=== PATIENT | male | born 1945 | race Caucasian/White ===

== ENCOUNTER 2019-05-07 14:32 | Outpatient (CLI) | payer MEDICARE, SELFPAY ==
--- NOTE | ~2019-05-07 | US_ITS ---
EXAMINATION: US carotid duplex BI DATE: 05/07/2019 15:17 INDICATION: Carotid stenosis. TECHNIQUE: Grayscale, color Doppler, and pulsed Doppler images of the cervical carotid arteries were obtained. The degree of vessel stenosis is placed in one of the following categories: normal, <50%, 5 0-69%, >=70% but less than near-occlusion, near-occlusion, or total occlusion. Note that percent sten osis relative to normal distal artery lumen diameter is indirectly measured from velocity measurement s as described by Steve, et al. Radiology 2003; 229:340-346. COMPARISON: Ultrasound 10/21/2015 FINDINGS: RIGHT: The right common carotid artery (CCA) peak systolic velocity (PSV) is 91 cm/s. The right internal car otid artery (ICA) PSV is 153 cm/s. The right ICA end-diastolic velocity (EDV) is 44 cm/s. The right I CA/CCA PSV ratio is 1.7. Grayscale and color Doppler images yield an estimate of >=50% diameter reduc tion from plaque in the ICA. There is antegrade flow in the right vertebral artery. LEFT: The left CCA PSV is 123 cm/s. The left ICA PSV is 223 cm/s. The left ICA EDV is 51 cm/s. The left ICA /CCA PSV ratio is 1.7. Grayscale and color Doppler images yield an estimate of >=50% diameter reducti on from plaque in the ICA. There is antegrade flow in the left vertebral artery. IMPRESSION: 1. 50-69% stenosis in the right internal carotid artery. 2. 50-69% stenosis in the left internal carotid artery. Reviewed, dictated and finalized at location A. T METAL SHOP SUPERVISOR
== END 2019-05-07 14:33 | disposition home or self-care (01) ==
PROVIDERS: PCP Family Medicine; Visit Provider Physician Assistant Medical
DX: I65.23 Occlusion and stenosis of bilateral carotid arteries (principal)
CPT/HCPCS: 93880

== ENCOUNTER → 2022-05-16 09:06 | Outpatient (CLI) | payer MEDICARE, SELFPAY ==
--- NOTE | ~2022-05-16 | US_ITS ---
Ultrasound of the Abdominal Aorta INDICATION: Personal history of nicotine abuse. Evaluate for aortic aneurysm. TECHNIQUE: Grayscale, color Doppler, and pulsed Doppler images of the aorta and common iliac arteries were obtained. COMPARISON: None. FINDINGS: Maximum vascular dimensions are as follows: Proximal aorta: Obscured by bowel gas shadowing. Mid aorta: 2.1 cm Distal aorta: 2.3 cm Right common iliac artery: 1.2 cm Left common iliac artery: 1.0 cm There is no evidence of abdominal aortic aneurysm. There is atherosclerotic calcification extensively involving the visualized abdominal aorta. IMPRESSION: No abdominal aortic aneurysm seen. Proximal abdominal aorta is obscured by bowel gas shadowing. Probable atherosclerotic calcification of the visualized abdominal aorta. Reviewed, dictated and finalized at location M. ANICAL DESIGNER IMPRESSION: No abdominal aortic aneurysm seen. Proximal abdominal aorta is obscured by kanchan l gas shadowing. Probable atherosclerotic calcification of the visualized abdominal aorta.
--- NOTE | ~2022-05-16 | US_ITS ---
Procedure: Duplex Doppler examination of the bilateral carotids. Indication: Carotid occlusion Technique: Real time, color-flow and pulse wave Doppler examination of the bilateral carotids was performed. Findings: Arreola scale ultrasonography of the right neck demonstrated a large calcified plaque at the proximal ri ght internal carotid artery. There was demonstration of normal color-flow and Doppler waveforms withi n the right common, internal and external carotid arteries. The peak systolic velocities in the right common, internal and external carotid arteries were demonstrated to be 110 cm/sec, 194 cm/sec and 19 2 cm/sec respectively. The right ICA/CCA ratio was 1.8.The proximal right internal carotid artery dem onstrates approximately 95% stenosis relative to the normal distal artery lumen diameter. Arreola scale sonography of the left neck demonstrated large calcified plaque at the proximal left inter nal carotid artery. There was demonstration of normal color-flow and wave forms within the left commo n, internal and external carotid arteries. The peak systolic velocities in the left common, internal and external carotid arteries were demonstrated to be 145cm/sec, 292 cm/sec and 179 cm/sec respective ly. The left ICA/CCA ratio was 2.7. The proximal left internal carotid artery demonstrates approximat ana luisa 95% stenosis relative to the normal distal artery lumen diameter. There was antegrade flow demonstrated in the bilateral vertebral arteries. Impression: Probable high-grade stenoses at the bilateral proximal internal carotid arteries, as detailed above. Consider CT angiogram for further imaging evaluation as indicated. Note: The methodology used is an indirect measurement validated against a direct method (such as the NASCET criteria) that compares diameters at the stenosis to the distal ICA. Reviewed, dictated and finalized at location M. ITY FLOW IRRIGATOR Impression: Probable high-grade stenoses at the bilateral proximal internal carotid arterie s, as detailed above. Consider CT angiogram for further imaging evaluation as i ndicated. Note: The methodology used is an indirect measurement validated against a direct meth od (such as the NASCET criteria) that compares diameters at the stenosis to the distal ICA.
== END ==
PROVIDERS: PCP Family Medicine; Visit Provider Physician Assistant
DX: I65.23 Occlusion and stenosis of bilateral carotid arteries (principal); Z87.891 Personal history of nicotine dependence; Z13.6 Encounter for screening for cardiovascular disorders
CPT/HCPCS: 76706; 93880

== ENCOUNTER 2023-05-05 16:07 | Observation (INO) | payer MEDICARE, SELFPAY ==
[2023-05-05] VITALS (12 sets, daily range): BP systolic 149–186; BP diastolic 68–102; PULSE 90–92; RESP 18–20; TEMP 36.7; O2SAT 96–100
--- NOTE | ~2023-05-05 | CT_ITS ---
EXAMINATION: CT abdomen pelvis w con DATE: 05/05/2023 21:52 INDICATION: RLQ pain TECHNIQUE: Computed tomography (CT) of the abdomen and pelvis was performed with 100 mL Omnipaque-350 intravenous contrast. Automated exposure control and iterative reconstruction technique were employe d. The dose-length product was 825.11 mGy-cm. COMPARISON: None. FINDINGS: Lower thorax: Dependent atelectasis. Coronary artery calcifications. Mediastinal surgical clips. Liver: Normal. Biliary/Gallbladder: Cholelithiasis. No bile duct dilation. Pancreas: Pancreatic lipoma/fatty inclusion. kidneys bilateral perinephric stranding. Duplicati on of the bilateral collecting systems. No hydronephrosis or suspicious mass. No obstructing calcific ation Spleen: Normal. Adrenals:No mass. Kidneys: No suspicious mass, obstructing stone, or hydronephrosis. GI tract: No small or large bowel dilation. Dilated appendix with surrounding inflammatory change. Ir regular 1.9 cm fluid collection at the tip of the appendix. No free air Mesentery/Peritoneum: No ascites, mass, or free air. Retroperitoneum: No mass. Atherosclerotic abdominal aortic and/or arterial calcifications. Pelvis: Moderately distended urinary bladder with mild wall thickening. Mild prostatomegaly. Soft Tissues: Soft tissues and body wall unremarkable. Bones: No acute osseous finding. IMPRESSION: Acute appendicitis, complicated by the presence of a 1.9 cm periappendiceal abscess at the tip of the appendix. No free air. Cystitis versus bladder wall thickening from chronic outlet obstruction. Reviewed, dictated and finalized at location K. RMATION SYSTEMS SECURITY MANAGER IMPRESSION: Acute appendicitis, complicated by the presence of a 1.9 cm periappendiceal abs cess at the tip of the appendix. No free air. Cystitis versus bladder wall thickening from chronic outlet obstruction.
[2023-05-05 21:08] LABS: Basophils Percent Auto 0.1 % (0.2-1.2); Eosinophils Absolute Auto 0.1 K/mm3 (0-0.3); Eosinophils Percent Auto 0.6 % (0-4.4); Hematocrit 44.3 % (42.0-52.0); Hemoglobin 14.6 g/dL (14.0-18.0); Immature Granulocyte Absolute 0.07 K/mm3 (0.00-0.031); Immature Granulocyte Percent A 0.4 % (0-0.5); Lymphocytes Absolute Auto 3.88 K/mm3 (0.9-3.2); Lymphocytes Percent Auto 21.6 % (18.3-44.2); Mean Corpuscular Hemoglobin 31.4 pg (26-34); Mean Corpuscular Volume 95.3 fl (80-100); Mean Platelet Volume 11.3 fl (7.4-10.4); Monocytes Absolute Auto 2.7 K/mm3 (0.1-0.6); Monocytes Percent Auto 15.1 % (2.6-8.5); Neutrophils Absolute Auto 11.2 K/mm3 (1.3-6.7); Neutrophils Percent Auto 62.2 % (45.5-73.1); Platelet Count Result 255 k/mm3 (150-375); Red Blood Count 4.65 M/mm3 (4.6-6.20); Red Cell Distribution Width 12.1 % (11.5-14.5)
[2023-05-05 21:11] LABS: Appearance Urine Clear (Clear); Bilirubin Urine Negative (Negative); Blood Urine Negative (Negative); Color Urine Yellow (Yellow); Glucose Urine UA Negative (Negative); Ketones Urine Negative (Negative); Leukocyte Esterase Ur Negative LEU/UL (Negative); Nitrate Urine Negative (Negative); Protein Urine Negative (Negative); Specific Grav Ur 1.003 (1.001-1.035); Urobilinogen Urine 0.2 mg/dL (<2.0); pH Urine 6.5 (5.0-9.0)
[2023-05-05 21:17] LABS: Alanine Aminotransferase 32 U/L (6-50); Albumin Level 4.6 g/dL (3.5-5.1); Alkaline Phosphatase 81 U/L (38-126); Anion Gap 9 mmol/L (8-16); Aspartate Amino Transferase 33 U/L (17-59); Bilirubin,Total 0.9 mg/dL (0.2-1.3); Blood Urea Nitrogen 15 mg/dL (9-20); Calcium 9.3 mg/dL (8.4-10.2); Carbon Dioxide 29 mmol/L (22-30); Chloride 101 mmol/L (98-107); Estimated CRCL calculation 74 ml/min; Estimated Glomerular Filt Rate > 60; Glucose 106 mg/dL (65-110); Sodium 139 mmol/L (137-145)
[2023-05-05 21:20] LABS: Add Urine Microscopic? NO
--- NOTE | 2023-05-05 21:47 | PC.NURSE ---
Patient in CT at this time.
--- NOTE | 2023-05-05 21:53 | ED.GENADULT ---
HPI - General Adult General Chief complaint: Abdominal Pain Stated complaint: RIGHT FLANK PAIN Time Seen by Provider: 05/05/23 21:32 Source: patient Mode of arrival: ambulatory Limitations: no limitations History of Present Illness HPI narrative: this is a 77 year old male with PMH of HLD, CAD, CABG who presents to the ED for chief complaint of right lower quadrant abdominal pain beginning last night and worsening through today. Reports some nausea that has since resolved. Denies any problems with bowel movements. Denies urinary symptoms. Denies any abdominal surgical history. Denies flank pain, fevers, chills, chest pain, shortness of breath or cough. Related Data Home Medications Medication Instructions Recorded Confirmed aspirin 81 mg tablet,delayed 81 mg PO DAILY 02/06/19 05/12/22 release (Ghada Low Dose Aspirin) multivitamin 1 cap PO DAILY 02/06/19 05/12/22 omega-3 fatty acids 1,000 mg 1,000 mg PO BID 05/05/19 05/12/22 capsule (Fish Oil Concentrate) Allergies Allergy/AdvReac Type Severity Reaction Status Date / Time No Known Allergies Allergy Verified 05/05/23 21:39 Review of Systems Review of Systems: All systems as dictated in [facility] Past Medical History Medical History Hyperlipidemia Hypertension Myocardial infarction (~11/07/01) Obesity (BMI 30.0-34.9) Wears glasses Surgical History Surgical History History of coronary angioplasty with insertion of stent (~11/07/01) Family History Family History Mother Cerebrovascular accident Father Family history of kidney disease Social History Social History Smoking status: Former smoker Second hand tobacco smoke exposure: No Smoking end date: 04/09/72 Alcohol intake: current Drinks per week: 1 Substance use: never Substance use type: does not use Lack of Transportation: No Lack of Food: Never True Current Housing: I Have Housing Concerned About Future Housing: No Difficulty Paying Gas/Electric Bills: No Difficulty Paying for Meds: No Currently Unemployed: No Education: Trade/Vocational Certificate Difficulty w/ Childcare or Family Care: No Living arrangements: with family Occupation/Education: retired Gender identity (if verbalized by the patient): Male Spiritual care concerns: No Agree to blood products: Yes Exam Narrative: GENERAL: Well-appearing, well-nourished, and in no acute distress. HEAD: Normocephalic, atraumatic. EYES: PERRLA and EOMI. ENT: Nares clear, no rhinorrhea or epistaxis. Mucous membranes moist. Oropharynx without tonsillar hypertrophy exudate or other lesions. NECK: Supple. No adenopathy or masses. CHEST: No respiratory distress. Clear to auscultation. No wheezes rales or rhonchi HEART: Regular rate and rhythm. No murmur heard. Normal peripheral pulses. ABDOMEN: Focal tenderness to the right lower quadrant. Soft, otherwise nontender, nondistended, normal active bowel sounds. MSK: Normal range of motion. No edema. SKIN: Warm, dry, no rash. NEURO: Alert and oriented x3. No focal deficits. PSYCH: Normal mood and affect. Course Vital Signs Vital signs: Vital Signs Temperature 98.0 F 05/05/23 16:10 Pulse Rate 92 05/05/23 16:10 Respiratory Rate 18 05/05/23 16:10 Blood Pressure 177/68 H 05/05/23 16:10 Pulse Oximetry 100 05/05/23 16:10 Temperature 98.0 F 05/05/23 16:10 Pulse Rate 83 05/06/23 00:30 Respiratory Rate 19 05/06/23 00:30 Blood Pressure 153/80 H 05/06/23 00:17 Pulse Oximetry 98 05/06/23 00:30 Medical Decision Making MDM Narrative Medical decision making narrative: This is a 77-year-old male who presents to the ED with chief complaint of right lower quadrant pain beginning last nigh
[2023-05-05] MEDS: MORPHINE SULFATE (*CRX) 4 MG/ML INJ IV PUSH (22:00)
[2023-05-05] MEDS: PIPERACILLN/TAZ 3.375GM/NS50ML 3.375 GM/50 ML BAG IVPB (22:46)
--- NOTE | 2023-05-05 22:55 | PM.IMHP ---
H&P: HPI History of Present Illness Date/Time: 05/05/23 22:55 Chief Complaint: Abdominal pain Narrative: Patient was brought to the ED for evaluation of abdominal pain on the right lower abdomen, symptoms that last night, minimal, was with ambulation, trev was 8/10 when patient was at the hospital Triage, no nausea no vomiting no diarrhea, no chills. He was evaluated in the ED and found to have a leukocytosis of 18 kg, CT scan of abdomen and pelvis showed acute appendicitis with periappendiceal abscess. Patient was provided with pain control, IV fluid and antibiotic. General surgery has been consulted and patient has been placed on surgical release tomorrow. During my consultation he denied any pain currently Review of Systems Review of Systems: All systems reviewed & are unremarkable except as noted in HPI and below PMFSH Past Medical History Medical History Hyperlipidemia Hypertension Myocardial infarction (~11/07/01) Obesity (BMI 30.0-34.9) Wears glasses Surgical History Surgical History History of coronary angioplasty with insertion of stent (~11/07/01) Family History Family History Mother Cerebrovascular accident Father Family history of kidney disease Social History Social History Smoking status: Former smoker Second hand tobacco smoke exposure: No Smoking end date: 04/09/72 Alcohol intake: current Drinks per week: 1 Substance use: never Substance use type: does not use Lack of Transportation: No Lack of Food: Never True Current Housing: I Have Housing Concerned About Future Housing: No Difficulty Paying Gas/Electric Bills: No Difficulty Paying for Meds: No Currently Unemployed: No Education: Trade/Vocational Certificate Difficulty w/ Childcare or Family Care: No Living arrangements: with family Occupation/Education: retired Gender identity (if verbalized by the patient): Male Spiritual care concerns: No Agree to blood products: Yes Meds Home Medications and Allergies Home Medications Medication Instructions Recorded Confirmed Type aspirin 81 mg tablet,delayed 81 mg PO DAILY 02/06/19 05/12/22 History release (Ghada Low Dose Aspirin) multivitamin 1 cap PO DAILY 02/06/19 05/12/22 History omega-3 fatty acids 1,000 mg 1,000 mg PO BID 05/05/19 05/12/22 History capsule (Fish Oil Concentrate) lisinopril 10 mg tablet 10 mg PO DAILY #90 tabs 08/29/22 Rx tamsulosin 0.4 mg capsule (Flomax) 0.4 mg PO DAILY #90 caps 11/24/22 Rx metoprolol tartrate 50 mg tablet 50 mg PO BID #180 tabs 11/30/22 Rx atorvastatin 40 mg tablet 40 mg PO DAILY #90 tabs 02/19/23 Rx Allergies Allergy/AdvReac Type Severity Reaction Status Date / Time No Known Allergies Allergy Verified 05/05/23 21:39 Vital Signs Vital Signs - 24 hr 05/05/23 16:10 05/05/23 20:58 Temperature 98.0 F Pulse Rate 92 90 Respiratory Rate 18 18 Blood Pressure 177/68 H 186/102 H Pulse Oximetry 100 100 Exam Narrative: General: Alert and oriented x4, not in distress HEENT: Normocephalic atraumatic EOMI Respiratory: Clear to auscultation bilaterally Cardiovascular: Regular rate and rhythm normal Gastrointestinal: Soft obese, right lower quadrant tenderness, bowel sounds are sounds Musculoskeletal/skin: Range of motion intact in all extremity, sensation circulation intact Neurologic: Priest and oriented x4, no focal neurological deficit H&P: Results Labs Labs: Short CBC 05/05/23 Range/Units 20:58 WBC 18.0 H (4.5-10.0) K/mm3 Hgb 14.6 (14.0-18.0) g/dL Hct 44.3 (42.0-52.0) % Plt Count 255 (150-375) k/mm3 [facility] 05/05/23 20:58 Sodium 139 Potassium 4.0 Chloride 101 Carbon Dioxide 29 BUN 15 Creatinine 0.90 Glucose 106 Calci
[2023-05-05 23:03] LABS: Lactic Acid Reflex 1.1 mmol/L (0.7-2.0)
[2023-05-06] VITALS (10 sets, daily range): BP systolic 145–164; BP diastolic 62–85; PULSE 66–99; RESP 16–19; TEMP 35.9–37.6; O2SAT 94–98; BMI 31.6
[2023-05-06] MEDS: SODIUM CHLORIDE 0.9% IV 1,000 ML 125 ML IV CONT ×3 (00:58→18:44)
--- NOTE | 2023-05-06 01:06 | ADMGEN ---
This patient, Angelina Moreno, was admitted to 3 [facility] Surg Room 316-01 at 1255. Patient/family oriented to hospital policies and general routines including ID bracelet, bed and alarms, visiting hours, pain management, procedures, bathroom and other care routines, personal items, smoking policy, room service/diet, and visiting hours. Information on how to activate the Rapid Response Team has been discussed. Patient/Family are encouraged to report perceived risks to care and to ask questions if they do not understand what they are told or what they should do.
[2023-05-06] MEDS: HYDROmorphone HCL INJ (*CRX) 1 MG/ML SYR 0.5 MG IV PUSH (03:29)
[2023-05-06] MEDS: PIPERACILLN/TAZ 3.375GM/NS50ML 3.375 GM/50 ML BAG IVPB ×4 (05:38→23:41)
[2023-05-06] MEDS: KETOROLAC 15 MG/ML VIAL (*BKC) IV PUSH (06:30)
[2023-05-06 07:22] LABS: Basophils Percent Auto 0.2 % (0.2-1.2); Eosinophils Absolute Auto 0.1 K/mm3 (0-0.3); Eosinophils Percent Auto 0.5 % (0-4.4); Hematocrit 40.7 % (42.0-52.0); Hemoglobin 13.5 g/dL (14.0-18.0); Immature Granulocyte Absolute 0.04 K/mm3 (0.00-0.031); Immature Granulocyte Percent A 0.3 % (0-0.5); Lymphocytes Absolute Auto 2.29 K/mm3 (0.9-3.2); Lymphocytes Percent Auto 18.1 % (18.3-44.2); Mean Corpuscular HGB Conc 33.2 g/dl (32-36); Mean Corpuscular Hemoglobin 31.7 pg (26-34); Mean Corpuscular Volume 95.5 fl (80-100); Mean Platelet Volume 11.1 fl (7.4-10.4); Monocytes Percent Auto 15.7 % (2.6-8.5); Neutrophils Absolute Auto 8.3 K/mm3 (1.3-6.7); Neutrophils Percent Auto 65.2 % (45.5-73.1); Platelet Count Result 205 k/mm3 (150-375); Red Blood Count 4.26 M/mm3 (4.6-6.20); Red Cell Distribution Width 12.2 % (11.5-14.5); White Blood Count 12.7 K/mm3 (4.5-10.0)
[2023-05-06 07:35] LABS: Anion Gap 7 mmol/L (8-16); Blood Urea Nitrogen 12 mg/dL (9-20); Calcium 8.7 mg/dL (8.4-10.2); Carbon Dioxide 29 mmol/L (22-30); Chloride 103 mmol/L (98-107); Estimated CRCL calculation 74 ml/min; Estimated Glomerular Filt Rate > 60; Glucose 123 mg/dL (65-110); Potassium 3.8 mmol/L (3.4-5.0); Sodium 139 mmol/L (137-145)
--- NOTE | 2023-05-06 10:56 | PM.CNGS ---
Assessment and Plan Assessment and plan (1) Acute appendicitis with appendiceal abscess: Code(s): K35.33 - Acute appendicitis with perforation, localized peritonitis, and gangrene, with abscess Status: Acute Assessment and Plan: exam completely benign, leukocytosis improved, long discussion with patient and family regarding surgical intervention versus conservative management with IV antibiotics, given comorbidities including coronary artery disease decision to proceed with continued conservative management for now, we will start clear liquids and make NPO again after midnight (2) Arteriosclerotic cardiovascular disease: Code(s): I25.10 - Atherosclerotic heart disease of [place] coronary artery without angina pectoris Status: Acute Assessment and Plan: status post CABG, if surgical intervention is required will likely need cardiac optimization History of Present Illness Consult details Consult date: 05/06/23 Reason for consult: abdominal pain Requesting physician: Zuleika Floyd MD Narrative: The patient is a 77-year-old male with multiple medical issues presenting to the emergency department complaining severe right lower quadrant abdominal pain. The patient reports the pain had been present for the last day or so and was worsening in intensity. The patient reports the pain is localized to the right lower quadrant and is sharp, constant. The patient reports the pain was worse with movement. The patient reports associated nausea, anorexia but denies any fevers, chills, emesis. Workup in the emergency department, including imaging, was significant for acute perforated appendicitis with periappendiceal abscess. Review of Systems Review of Systems: All systems reviewed & are unremarkable except as noted in HPI and below PMFSH Past Medical History Medical History Hyperlipidemia Hypertension Myocardial infarction (~11/07/01) Obesity (BMI 30.0-34.9) Wears glasses Surgical History Surgical History History of coronary angioplasty with insertion of stent (~11/07/01) Family History Family History Mother Cerebrovascular accident Father Family history of kidney disease Social History Social History Smoking status: Former smoker Tobacco type: cigarettes Second hand tobacco smoke exposure: No Alcohol intake: current Drinks per week: 1 Substance use: never Substance use type: does not use Do You Feel Safe in your Home?: Yes Lack of Transportation: No Lack of Food: Never True Current Housing: I Have Housing Concerned About Future Housing: No Difficulty Paying Gas/Electric Bills: No Difficulty Paying for Meds: No Currently Unemployed: No Education: Trade/Vocational Certificate Difficulty w/ Childcare or Family Care: No Living arrangements: with family Occupation/Education: retired Gender identity (if verbalized by the patient): Male Spiritual care concerns: No Agree to blood products: Yes Meds Home Medications and Allergies Home Medications Medication Instructions Recorded Confirmed Type aspirin 81 mg tablet,delayed 81 mg PO DAILY 02/06/19 05/06/23 History release (Ghada Low Dose Aspirin) multivitamin 1 cap PO DAILY 02/06/19 05/06/23 History omega-3 fatty acids 1,000 mg 1,000 mg PO BID 05/05/19 05/06/23 History capsule (Fish Oil Concentrate) lisinopril 10 mg tablet 10 mg PO DAILY #90 tabs 08/29/22 05/06/23 Rx tamsulosin 0.4 mg capsule (Flomax) 0.4 mg PO DAILY #90 caps 11/24/22 05/06/23 Rx metoprolol tartrate 50 mg tablet 50 mg PO BID #180 tabs 11/30/22 05/06/23 Rx atorvastatin 40 mg tablet 40 mg PO DAILY #90 tabs 02/19/23 05/06/23 Rx Allergies Allergy/AdvReac Type Severity Reaction Status Date / Time No Known All
--- NOTE | 2023-05-06 14:39 | PM.IMPN ---
Progress Note: A&P Assessment and Plan (1) Acute appendicitis with appendiceal abscess: Code(s): K35.33 - Acute appendicitis with perforation, localized peritonitis, and gangrene, with abscess Status: Acute Assessment and Plan: CT of the abdomen pelvis revealed acute appendicitis, complicated by the presence of a 1.9 cm periappendiceal abscess at the tip of the appendix, no free air. Patient was started on Zosyn Continue with pain medication as needed Continue with nausea medication as needed General surgery consulted and seen patient, we will continue with conservative treatment for now and reassess in the morning. Start clear liquid diet, NPO after midnight (2) Essential (primary) hypertension: Code(s): I10 - Essential (primary) hypertension Status: Chronic Assessment and Plan: Restart lisinopril and metoprolol (3) Hyperlipidemia: Code(s): E78.5 - Hyperlipidemia, unspecified Status: Acute Assessment and Plan: Restart atorvastatin Time Spent With Patient Time with patient: Greater than 35 minutes Subjective Date/time seen: 05/06/23 14:39 Interval history: This is a 77-year-old male who presented to the hospital on 05/05/2019 complaints pain right lower quadrant. Workup in the hospital included a CT scan which acute which is complicated by the presence of 1.9 cm. Appendiceal abscess at the tip of the appendix, no free air, cystitis versus bladder thickening from chronic outlet obstruction. Labs initially showing white blood cell count 18.0, otherwise unremarkable. He did have a UA which was unremarkable. Blood cultures were also obtained and are currently pending. He was given morphine, Toradol, and started on Zosyn while in the ED. On examination today patient is alert oriented x3 sitting in the. is at the bedside. He reports that he a headache slight pain right lower quadrant however it is much better than yesterday. He denies any nausea, vomiting, diarrhea, shortness of breath, chest pain, lightheadedness, dizziness, fever, chills. Vital signs are stable, is afebrile he is currently room air. Labs today revealed white blood cell count of 12.7 otherwise unremarkable. Review of Systems Review of Systems: All systems reviewed & are unremarkable except as noted in HPI and below Constitutional: Constitutional: Reports as per HPI and Reports no additional constitutional complaints Eyes: Eyes: Reports as per HPI and Reports no additional eye complaints ENT: Reports system reviewed and no additional complaints, except as documented and Reports as per HPI Cardiovascular: Cardiovascular: Reports as per HPI and Reports no additional cardiovascular complaints Respiratory: Respiratory: Reports as per HPI and Reports no additional respiratory complaints Gastrointestinal: Gastrointestinal: Reports as per HPI and Reports no additional gastrointestinal complaints Genitourinary: Genitourinary: Reports no additional male genitourinary complaints and Reports as per HPI Musculoskeletal: Musculoskeletal: Reports no additional musculoskeletal complaints and Reports as per HPI Integumentary/Breasts: Skin/Breast: Reports system reviewed and no additional complaints, except as docu and Reports as per HPI Neurologic: Reports system reviewed and no additional complaints, except as documented and Reports as per HPI Psychiatric: Psychiatric: Reports no additional psychiatric complaints and Reports as per HPI Exam Narrative: General: In no acute distress, well nourished Head: atraumatic, no encephalopathy Eyes: EOMI, PERRLA, sclera clear ENT: moist mucous membranes, nasal passages clear Neck: supple, no JVD, no adenopathy, trachea midline Cardiac: Normal S1 and S2. RRR. No murmur, gallops or friction rubs, peripheral pulses intact. Respiratory: Lungs clear to auscultation, no adventitious lung sounds, he is currently on room air Gastrointestinal: soft, non-distended, ten
[2023-05-06] MEDS: OMEGA 3 POLYUNSAT FATTY ACIDS 1 GM CAP PO (17:13)
[2023-05-06] MEDS: METOPROLOL TARTRATE 50 MG TAB PO (17:13)
[2023-05-07] MEDS: traZODone HCL 50 MG TABLET PO ×2 (00:31→20:53)
[2023-05-07] MEDS: SODIUM CHLORIDE 0.9% IV 1,000 ML 125 ML IV CONT ×3 (02:10→19:22)
[2023-05-07] MEDS: PIPERACILLN/TAZ 3.375GM/NS50ML 3.375 GM/50 ML BAG IVPB ×4 (05:35→23:44)
[2023-05-07 06:00] VITALS: BP 158/66; PULSE 85; RESP 20; TEMP 37.1; O2SAT 95
[2023-05-07 06:42] LABS: Basophils Percent Auto 0.2 % (0.2-1.2); Eosinophils Absolute Auto 0.1 K/mm3 (0-0.3); Eosinophils Percent Auto 0.6 % (0-4.4); Hematocrit 37.6 % (42.0-52.0); Hemoglobin 12.5 g/dL (14.0-18.0); Immature Granulocyte Absolute 0.05 K/mm3 (0.00-0.031); Immature Granulocyte Percent A 0.4 % (0-0.5); Lymphocytes Percent Auto 18.1 % (18.3-44.2); Mean Corpuscular HGB Conc 33.2 g/dl (32-36); Mean Corpuscular Hemoglobin 31.7 pg (26-34); Mean Corpuscular Volume 95.4 fl (80-100); Mean Platelet Volume 11.1 fl (7.4-10.4); Monocytes Absolute Auto 2.4 K/mm3 (0.1-0.6); Monocytes Percent Auto 17.2 % (2.6-8.5); Neutrophils Absolute Auto 8.8 K/mm3 (1.3-6.7); Neutrophils Percent Auto 63.5 % (45.5-73.1); Platelet Count Result 198 k/mm3 (150-375); Red Blood Count 3.94 M/mm3 (4.6-6.20); Red Cell Distribution Width 12.1 % (11.5-14.5); White Blood Count 13.8 K/mm3 (4.5-10.0)
[2023-05-07 06:58] LABS: Alanine Aminotransferase 20 U/L (6-50); Albumin Level 3.5 g/dL (3.5-5.1); Alkaline Phosphatase 65 U/L (38-126); Anion Gap 6 mmol/L (8-16); Aspartate Amino Transferase 32 U/L (17-59); Bilirubin,Total 1.4 mg/dL (0.2-1.3); Blood Urea Nitrogen 10 mg/dL (9-20); Calcium 8.4 mg/dL (8.4-10.2); Carbon Dioxide 28 mmol/L (22-30); Chloride 108 mmol/L (98-107); Estimated CRCL calculation 81 ml/min; Estimated Glomerular Filt Rate > 60; Glucose 118 mg/dL (65-110); Potassium 4.2 mmol/L (3.4-5.0); Sodium 142 mmol/L (137-145)
[2023-05-07] MEDS: METOPROLOL TARTRATE 50 MG TAB PO ×2 (08:27→17:02)
[2023-05-07] MEDS: TAMSULOSIN HCL 0.4 MG CAPSULE PO (08:28)
[2023-05-07] MEDS: ATORVASTATIN 40 MG TABLET PO (08:28)
[2023-05-07] MEDS: lisinopriL 10 MG TABLET PO (08:28)
[2023-05-07] MEDS: MULTIVITAMINS THERAPEUTIC TAB (*BKC) 1 TABLET PO (08:28)
[2023-05-07] MEDS: OMEGA 3 POLYUNSAT FATTY ACIDS 1 GM CAP PO ×2 (08:28→17:02)
--- NOTE | 2023-05-07 11:51 | PM.PNGS ---
Progress Note: A&P Assessment and Plan (1) Acute appendicitis with appendiceal abscess: Code(s): K35.33 - Acute appendicitis with perforation, localized peritonitis, and gangrene, with abscess Status: Acute Assessment and Plan: exam benign, advance to heart healthy diet, likely home tomorrow on po abx if doing well Subjective Subjective Date/Time Seen: 05/07/23 11:51 Interval history: feels good, some mild RLQ pain c movt, petty clears, wants to eat Review of Systems Review of Systems: All systems reviewed & are unremarkable except as noted in HPI and below Exam Const: General: cooperative, comfortable and no acute distress Resp: Auscultation: clear to auscultation bilaterally Cardio: Rate: regular rate Rhythm: regular rhythm GI: Inspection: normal to inspection and non-distended GI Palp: Yes abdominal tenderness, Yes Soft to palpation, Yes Tenderness to palpation present (GI), No Guarding due to palpation present (GI) and No Rigid due to palpation Other: minimal RLQ pain to palpation Objective Data Vital Signs Vital Signs: Vital Signs - 24 hr 05/06/23 14:00 05/06/23 17:13 05/06/23 20:00 Temperature 36.9 C Pulse Rate 87 87 Respiratory Rate 16 Blood Pressure 164/64 H Pulse Oximetry 98 Oxygen Delivery Room Air 05/06/23 22:00 05/07/23 06:00 05/07/23 08:00 Temperature 37.6 C H 37.1 C Pulse Rate 66 85 Respiratory Rate 19 20 Blood Pressure 145/62 H 158/66 H Pulse Oximetry 98 95 Oxygen Delivery Room Air Intake/Output Intake/Output: Intake & Output 05/04/23 05/05/23 05/06/23 05/07/23 23:59 23:59 23:59 23:59 Intake Total 50 3050 2500 Balance 50 3050 2500 Meds/Results Medications: Active Medications Generic Name Dose Route Start Last Admin Trade Name Freq PRN Reason Stop Dose Admin Atorvastatin Calcium 40 mg 05/07/23 09:00 05/07/23 08:28 Atorvastatin 40 Mg Tablet PO 40 mg DAILY TANG Administration Fish Oil 1 gm 05/06/23 17:00 05/07/23 08:28 [place] 3 Polyunsat Fatty Acids 1 Gm Cap PO 1 gm BID TANG Administration Hydromorphone HCl 0.5 mg 05/05/23 22:55 05/06/23 03:29 Hydromorphone Hcl Inj (*Crx) 1 Mg/Ml Syr IV PUSH 0.5 mg Q4H PRN Administration Pain Rated 7-10 Sodium Chloride 1,000 mls @ 125 mls/hr 05/05/23 22:55 05/07/23 10:30 Normal Saline Iv IV CONT 125 mls/hr .Q8H TANG Administration Piperacillin/Tazobactam/Dextrose 3.375 gm in 50 mls @ 100 mls/hr 05/06/23 06:00 05/07/23 11:28 Zosyn 3.375 Gm/Ns 50 Ml IVPB 100 mls/hr Q6HR TANG Administration Lisinopril 10 mg 05/07/23 09:00 05/07/23 08:28 Lisinopril 10 Mg Tablet PO 10 mg DAILY TANG Administration Metoprolol Tartrate 50 mg 05/06/23 17:00 05/07/23 08:27 Metoprolol Tartrate 50 Mg Tab PO 50 mg BID TANG Administration Multivitamins Therapeutic 1 tablet 05/07/23 09:00 05/07/23 08:28 Multivitamins Therapeutic Tab (*Bkc) PO 1 tablet DAILY TANG Administration Ondansetron HCl 4 mg 05/05/23 22:55 Ondansetron Inj 4 Mg/2 Ml Vial IV PUSH Q4H PRN Nausea Tamsulosin HCl 0.4 mg 05/07/23 09:00 05/07/23 08:28 Tamsulosin Hcl 0.4 Mg Capsule PO 0.4 mg DAILY TANG Administration Trazodone HCl 50 mg 05/07/23 00:26 05/07/23 00:31 Trazodone Hcl 50 Mg Tablet PO 50 mg HS PRN Administration Insomnia Radiology Results: ITS Impressions Abdomen/Pelvis CT 05/05/23 22:03 IMPRESSION: Acute appendicitis, complicated by the presence of a 1.9 cm periappendiceal abscess at the tip of the appendix. No free air. Cystitis versus bladder wall thickening from chronic outlet obstruction. Labs Labs: Laboratory Results - last 24 hr 05/07/23 06:30 WBC 13.8 H RBC 3.94 L Hgb 12.5 L Hct 37.6 L MCV 95.4 MCH 31.7 MCHC 33.2 RDW 12.1 Plt Count 198 MPV 11.1 H Immature Gran % (Auto) 0.4 Neut % (Auto) 63.5 Lymph % (Auto) 18.1 L [place] % (Auto) 17.2 H Eos % (Au
--- NOTE | 2023-05-07 12:33 | PM.IMPN ---
Progress Note: A&P Assessment and Plan (1) Acute appendicitis with appendiceal abscess: Code(s): K35.33 - Acute appendicitis with perforation, localized peritonitis, and gangrene, with abscess Status: Acute Assessment and Plan: 05/06/23: CT of the abdomen pelvis revealed acute appendicitis, complicated by the presence of a 1.9 cm periappendiceal abscess at the tip of the appendix, no free air. Patient was started on Zosyn Continue with pain medication as needed Continue with nausea medication as needed General surgery consulted and seen patient, we will continue with conservative treatment for now and reassess in the morning. Start clear liquid diet, NPO after midnight 05/07/23: Continue Zosyn Continue pain control Continue conservative treatment per General surgery team advance diet as tolerated Likely will DC home tomorrow on oral antibiotics Levaquin and Flagyl unless general surgery wants something different. (2) Essential (primary) hypertension: Code(s): I10 - Essential (primary) hypertension Status: Chronic Assessment and Plan: 05/06/23: Restart lisinopril and metoprolol 05/07/23: No change to current treatment plan (3) Hyperlipidemia: Code(s): E78.5 - Hyperlipidemia, unspecified Status: Acute Assessment and Plan: 05/06/23: Restart atorvastatin 05/07/23: No change to current treatment plan Time Spent With Patient Time with patient: 25 - 35 minutes Subjective Date/time seen: 05/07/23 12:33 Interval history: 05/06/23: This is a 77-year-old male who presented to the hospital on 05/05/2019 complaints pain right lower quadrant. Workup in the hospital included a CT scan which acute which is complicated by the presence of 1.9 cm. Appendiceal abscess at the tip of the appendix, no free air, cystitis versus bladder thickening from chronic outlet obstruction. Labs initially showing white blood cell count 18.0, otherwise unremarkable. He did have a UA which was unremarkable. Blood cultures were also obtained and are currently pending. He was given morphine, Toradol, and started on Zosyn while in the ED. On examination today patient is alert oriented x3 sitting in the. is at the bedside. He reports that he a headache slight pain right lower quadrant however it is much better than yesterday. He denies any nausea, vomiting, diarrhea, shortness of breath, chest pain, lightheadedness, dizziness, fever, chills. Vital signs are stable, is afebrile he is currently room air. Labs today revealed white blood cell count of 12.7 otherwise unremarkable. 05/07/23: On examination today patient is alert and oriented x3, lying in the bed. He states his pain is still well controlled. He denies any nausea or vomiting. VSS, he is on room air, he is afebrile. Labs today shown WBC 13.8 otherwise essentially unremarkable. General surgery seen patient today and will continue with conservative treatment. He can advance his diet today and likely discharge home tomorrow on oral antibiotics. Review of Systems Review of Systems: All systems reviewed & are unremarkable except as noted in HPI and below Constitutional: Constitutional: Reports as per HPI and Reports no additional constitutional complaints Eyes: Eyes: Reports as per HPI and Reports no additional eye complaints ENT: Reports system reviewed and no additional complaints, except as documented and Reports as per HPI Cardiovascular: Cardiovascular: Reports as per HPI and Reports no additional cardiovascular complaints Respiratory: Respiratory: Reports as per HPI and Reports no additional respiratory complaints Gastrointestinal: Gastrointestinal: Reports as per HPI and Reports no additional gastrointestinal complaints Genitourinary: Genitourinary: Reports no additional male genitourinary complaints and Reports as per HPI Musculoskeletal: Musculoskeletal: Reports no additional musculoskeletal complaints and Reports as pe
[2023-05-07 14:00] VITALS: BP 129/66; PULSE 74; RESP 20; TEMP 36.4; O2SAT 100
[2023-05-07 22:00] VITALS: BP 140/88; PULSE 68; RESP 20; TEMP 36.9; O2SAT 100
[2023-05-08] MEDS: SODIUM CHLORIDE 0.9% IV 1,000 ML 125 ML IV CONT (03:01)
[2023-05-08] MEDS: PIPERACILLN/TAZ 3.375GM/NS50ML 3.375 GM/50 ML BAG IVPB ×2 (05:58→12:25)
[2023-05-08 06:00] VITALS: BP 157/76; PULSE 73; RESP 20; TEMP 36.7; O2SAT 98
[2023-05-08 06:38] LABS: Basophils Percent Auto 0.2 % (0.2-1.2); Eosinophils Absolute Auto 0.2 K/mm3 (0-0.3); Eosinophils Percent Auto 1.5 % (0-4.4); Hematocrit 39.2 % (42.0-52.0); Hemoglobin 12.9 g/dL (14.0-18.0); Immature Granulocyte Absolute 0.03 K/mm3 (0.00-0.031); Immature Granulocyte Percent A 0.2 % (0-0.5); Lymphocytes Absolute Auto 2.72 K/mm3 (0.9-3.2); Lymphocytes Percent Auto 22.2 % (18.3-44.2); Mean Corpuscular HGB Conc 32.9 g/dl (32-36); Mean Corpuscular Hemoglobin 31.5 pg (26-34); Mean Corpuscular Volume 95.8 fl (80-100); Mean Platelet Volume 11.2 fl (7.4-10.4); Monocytes Absolute Auto 1.9 K/mm3 (0.1-0.6); Monocytes Percent Auto 15.7 % (2.6-8.5); Neutrophils Absolute Auto 7.4 K/mm3 (1.3-6.7); Neutrophils Percent Auto 60.2 % (45.5-73.1); Platelet Count Result 197 k/mm3 (150-375); Red Blood Count 4.09 M/mm3 (4.6-6.20); White Blood Count 12.3 K/mm3 (4.5-10.0)
[2023-05-08 06:48] LABS: Alanine Aminotransferase 19 U/L (6-50); Albumin Level 3.6 g/dL (3.5-5.1); Alkaline Phosphatase 65 U/L (38-126); Anion Gap 6 mmol/L (8-16); Aspartate Amino Transferase 22 U/L (17-59); Bilirubin,Total 0.8 mg/dL (0.2-1.3); Blood Urea Nitrogen 8 mg/dL (9-20); Calcium 8.6 mg/dL (8.4-10.2); Carbon Dioxide 28 mmol/L (22-30); Chloride 106 mmol/L (98-107); Estimated CRCL calculation 81 ml/min; Estimated Glomerular Filt Rate > 60; Glucose 119 mg/dL (65-110); Potassium 3.8 mmol/L (3.4-5.0); Sodium 140 mmol/L (137-145)
[2023-05-08 09:08] VITALS: PULSE 72
[2023-05-08] MEDS: METOPROLOL TARTRATE 50 MG TAB PO (09:08)
[2023-05-08] MEDS: MULTIVITAMINS THERAPEUTIC TAB (*BKC) 1 TABLET PO (09:08)
[2023-05-08] MEDS: TAMSULOSIN HCL 0.4 MG CAPSULE PO (09:08)
[2023-05-08] MEDS: lisinopriL 10 MG TABLET PO (09:08)
[2023-05-08] MEDS: ATORVASTATIN 40 MG TABLET PO (09:08)
[2023-05-08] MEDS: OMEGA 3 POLYUNSAT FATTY ACIDS 1 GM CAP PO (09:09)
[2023-05-08 09:41] VITALS: BP 180/76; PULSE 76; RESP 18; TEMP 36.2; O2SAT 98
--- NOTE | 2023-05-08 12:33 | PM.DS ---
DS: Admitting Diagnosis Discharge Date 05/08/23 Admitting Diagnosis Acute appendicitis with appendiceal abscess DS: Discharge Diagnosis Discharge Diagnosis (1) Acute appendicitis with appendiceal abscess: Code(s): K35.33 - Acute appendicitis with perforation, localized peritonitis, and gangrene, with abscess Status: Acute (2) Essential (primary) hypertension: Code(s): I10 - Essential (primary) hypertension Status: Chronic (3) Hyperlipidemia: Code(s): E78.5 - Hyperlipidemia, unspecified Status: Acute DS: Summary Hospital Course Reason for hospitalization: Acute appendicitis with appendiceal abscess Hospital Course: This is a 77-year-old male who presented to the hospital on 05/05/2019 complaints pain right lower quadrant.? Workup in the hospital included a CT scan which acute which is complicated by the presence of 1.9 cm.? Appendiceal abscess at the tip of the appendix, no free air, cystitis versus bladder thickening from chronic outlet obstruction.? Labs initially showing white blood cell count 18.0, otherwise unremarkable.? He did have a UA which was unremarkable.? Blood cultures were also obtained and are currently pending.? He was given morphine, Toradol, and started on Zosyn while in the ED. On examination today patient is alert oriented x3 sitting in the.? is at the bedside.? He reports that he a headache slight pain right lower quadrant however it is much better than yesterday.? He denies any nausea, vomiting, diarrhea, shortness of breath, chest pain, lightheadedness, dizziness, fever, chills.? Vital signs are stable, is afebrile he is currently room air.? Labs today revealed white blood cell count of 12.7 otherwise unremarkable. 05/07/23: On examination today patient is alert and oriented x3, lying in the bed. He states his pain is still well controlled. He denies any nausea or vomiting. VSS, he is on room air, he is afebrile. Labs today shown WBC 13.8 otherwise essentially unremarkable. General surgery seen patient today and will continue with conservative treatment. He can advance his diet today and likely discharge home tomorrow on oral antibiotics.? 05/08/23: Patient doing well today. Pain is minimal. VSS, he is afebrile, currently on room air. Labs today general blood cell count of 12.3, otherwise unremarkable. Patient was seen by General surgery who will see him in office in 1-2 weeks. He is stable for discharge. We will place him on 7 days of Flagyl 500mg and Levaquin 750mg. Status at Discharge Cognitive/behavioral status at discharge: alert and oriented x3 Functional status at discharge: independent ambulation Overall status at discharge: patient is progressing back to baseline Time Spent with Patient Time attestation: Total time spent providing and/or coordinating discharge services: Time spent: Greater than 30 minutes Exam Narrative: General: In no acute distress, well nourished Head: atraumatic, no encephalopathy Eyes: EOMI, PERRLA, sclera clear ENT: moist mucous membranes, nasal passages clear Neck: supple, no JVD, no adenopathy, trachea midline Cardiac: Normal S1 and S2. RRR. No murmur, gallops or friction rubs, peripheral pulses intact. Respiratory: Lungs clear to auscultation, no adventitious lung sounds, he is currently on room air Gastrointestinal: soft, non-distended, tenderness over right lower quadrant, normoactive bowel sounds. He is passing gas : voiding without difficulty. Extremities: moves all extremities well, no edema, good ROM, strength 5/5 Skin: clean, dry, intact. No wounds or lesions. Neuro: Alert and oriented x4, cranial nerves intact, no neuro deficits. Psych: normal mood, normal affect, interactive, pleasant DS: Data Data Completed and Pending Completed studies during hospitalization: abdomen/pelvis Ct Pending studies at discharge: None Labs on day of discharge: Labs from last 24 hours 05/08/23 06:24 WBC 12.3 H RBC 4.09 L Hg
--- NOTE | 2023-05-08 12:48 | PM.PNGS ---
Progress Note: A&P Assessment and Plan (1) Acute appendicitis with appendiceal abscess: Code(s): K35.33 - Acute appendicitis with perforation, localized peritonitis, and gangrene, with abscess <RODDY Mendoza - Last Filed: 05/08/23 13:02> Status: Acute <RODDY Mendoza - Last Filed: 05/08/23 13:02> Assessment and Plan: Continues to improve. Afebrile and WBC down to 12.3 today. Okay to discharge home today and transition to oral antibiotics. Follow-up with Dr. Tsang in 2 weeks. Interval appendectomy can be discussed in follow-up. <RODDY Mendoza - Last Filed: 05/08/23 13:02> Assessment and Plan: I have discussed the patient's case and plan of care with Dr. Tsang. <RODDY Mendoza - Last Filed: 05/08/23 13:02> Subjective Subjective Date/Time Seen: 05/08/23 12:48 <RODDY Mendoza - Last Filed: 05/08/23 13:02> Patient reports: no new complaints, feels better, pain is less, tolerating a regular diet, flatus, bowel movement and afebrile <RODDY Mendoza - Last Filed: 05/08/23 13:02> Interval history: This is a 78 yo man who presented with acute appendicitis with abscess. He was admitted and has been treated nonoperatively with IV antibiotics. Chart reviewed. Patient seen today. He is tolerating a regular diet. He had a bowel movement this morning. He denies any nausea, vomiting, or bloating. His abdominal pain has significantly improved since admission. Not requiring any pain medication. White blood cell count is trending down today to 12,000. He also reports having some nasal and sinus congestion starting yesterday. <RODDY Mendoza - Last Filed: 05/08/23 13:02> Review of Systems Review of Systems: All systems reviewed & are unremarkable except as noted in HPI and below <RODDY Mendoza - Last Filed: 05/08/23 13:02> Exam Const: General: comfortable and no acute distress <Chery Cavanaugh LindaRODDY stevens - Last Filed: 05/08/23 13:02> Orientation/consciousness: patient oriented x3 <Chery Cavanaugh LindaRODDY stevens - Last Filed: 05/08/23 13:02> GI: Inspection: non-distended <Chery Cavanaugh LindaRODDY stevens - Last Filed: 05/08/23 13:02> GI Palp: Yes Soft to palpation, Yes Tenderness to palpation present (GI) (very mild RLQ tenderness), No Guarding due to palpation present (GI) and No Rebound tenderness present <Chery Cavanaugh LindaRODDY stevens - Last Filed: 05/08/23 13:02> Auscultation: normal bowel sounds <Chery Cavanaugh LindaRODDY stevens - Last Filed: 05/08/23 13:02> Objective Data Vital Signs Vital Signs: Vital Signs - 24 hr 05/07/23 14:00 05/07/23 20:00 05/07/23 22:00 Temperature 97.6 F 98.4 F Pulse Rate 74 68 Respiratory Rate 20 20 Blood Pressure 129/66 140/88 Pulse Oximetry 100 100 Oxygen Delivery Room Air 05/08/23 06:00 05/08/23 09:08 05/08/23 09:41 Temperature 98.1 F 97.1 F L Pulse Rate 73 72 76 Respiratory Rate 20 18 Blood Pressure 157/76 H 180/76 H Pulse Oximetry 98 98 Oxygen Delivery <Chery Cavanaugh LindaRODDY stevens - Last Filed: 05/08/23 13:02> Intake/Output Intake/Output: Intake & Output 05/05/23 05/06/23 05/07/23 05/08/23 23:59 23:59 23:59 23:59 Intake Total 50 3050 4822 2 Balance 50 3050 4822 1961 <RODDY Mendoza - Last Filed: 05/08/23 13:02> Meds/Results Medications: Active Medications Generic Name Dose Route Start Last Admin Trade Name Freq PRN Reason Stop Dose Admin Atorvastatin Calcium 40 mg 05/07/23 09:00 05/08/23 09:08 Atorvastatin 40 Mg Tablet PO 40 mg DAILY TANG Administration Fish Oil 1 gm 05/06/23 17:00 05/08/23 09:09 [place] 3 Polyunsat Fatty Acids 1 Gm Cap PO 1 gm BID TANG Administration Hydromorphone HCl 0.5 mg 05/05/23 22:55 05/06/23 03:29 Hydromorphone Hcl Inj (*Crx) 1 Mg/Ml Syr IV PUSH 0.5 mg Q4H PRN Administration Pain Rated 7-10 Sodium Chloride 1,000 mls @ 125 mls/hr 05/05/23 22:55 05/08/23 12:45 Normal Saline Iv IV CONT Not Giv
== END 2023-05-08 13:40 | disposition home or self-care (01) ==
LOC: ANHED 23:00 → ANH3MEDSUR 05-06 00:47
PROVIDERS: Emergency Medicine; Nurse Practitioner Acute Care; Admitting Provider Student in an Organized Health Care Education/Training Program; Emergency Provider Physician Assistant; PCP Family Medicine; Visit Provider Family Medicine
DX: K35.33 Acute appendicitis with perforation, localized peritonitis, and gangrene, with abscess (principal); I10 Essential (primary) hypertension; E78.5 Hyperlipidemia, unspecified; I25.10 Atherosclerotic heart disease of native coronary artery without angina pectoris; I25.2 Old myocardial infarction; Z79.82 Long term (current) use of aspirin; E66.9 Obesity, unspecified; Z68.31 Body mass index [BMI] 31.0-31.9, adult; Z87.891 Personal history of nicotine dependence; Z95.5 Presence of coronary angioplasty implant and graft
CPT/HCPCS: 36415; 74177; 80048; 80053; 81003; 83605; 85025; 87040; 96365; 96366; 96375; 99285; A9270; G0378; J1170; J1885; J2270; J2543; J7030; Q9967

== ENCOUNTER 2023-11-27 08:46 | Outpatient (CLI) | payer MEDICARE, SELFPAY ==
--- NOTE | ~2023-11-27 | CT_ITS ---
EXAMINATION: CT abdomen pelvis w con DATE: 11/27/2023 09:10 INDICATION: Recurrent right lower quadrant abdominal pain. TECHNIQUE: Computed tomography (CT) of the abdomen and pelvis was performed with 100 mL Omnipaque 350 intravenous contrast. Automated exposure control and iterative reconstruction technique were employe d. The dose-length product was 768.48 mGy-cm. COMPARISON: CT abdomen pelvis 05/05/2023 FINDINGS: The visualized portions of the lung bases demonstrate mild atelectasis. There is mild scarr ing in paraspinal right lower lobe. No pleural effusion. The heart size is normal. There are coronary artery calcifications. No pericardial effusion. The liver and spleen are normal. There are gallstone s in the gallbladder, which is normal in size. The pancreas, adrenal glands, and kidneys are normal. The prostate is mildly enlarged. There is diverticulosis of the colon without evidence of diverticuli tis. The pancreas is fluid-filled and dilated to 11 mm. There is fat stranding around the appendix. T here is calcified atherosclerosis of the aorta and many of the other arteries. There are no pathologi taiwo enlarged lymph nodes. There is no free intraperitoneal fluid. There is severe lower lumbar spon dylosis. There is mild chronic anterior wedging of multiple thoracic vertebral bodies. IMPRESSION: 1. Acute appendicitis. Reviewed, dictated and finalized at location A. IMPRESSION: 1. Acute appendicitis.
== END 2023-11-27 08:47 | disposition home or self-care (01) ==
PROVIDERS: PCP Family Medicine; Visit Provider Family Medicine
DX: K35.33 Acute appendicitis with perforation, localized peritonitis, and gangrene, with abscess (principal)
CPT/HCPCS: 74177; Q9967

== ENCOUNTER 2023-11-27 14:09 | Emergency (ER) | payer MEDICARE, SELFPAY ==
[2023-11-27 14:16] VITALS: BP 154/57; PULSE 80; RESP 16; TEMP 36.4; O2SAT 98
--- NOTE | 2023-11-27 15:17 | ED.ABDPAIN ---
HPI - Abdominal Pain General Chief Complaint: Abdominal Pain Stated Complaint: appendicitis Time Seen by Provider: 11/27/23 14:42 Source: patient and family Mode of arrival: ambulatory Limitations: no limitations History of Present Illness HPI narrative: Patient presents with report of appendicitis. Patient had been diagnosed with appendicitis previously, this is 3rd time since April. It had been conservatively treated for with antibiotics and discharged home. He had previously been under the care of Dr Tsang for this management. Last week, he began to develop pain in the right lower quadrant again and his primary care physician Dr Mcpherson represcribed the medications he had been on before (cephalexin and metronidazole) and ordered a CT scan. He started taking the antibiotics immediately by the 3rd day he was pain free. He proceeded with getting the CT scan this morning however and the radiologist interpreted this as appendicitis he was advised to come to the emergency department. He continues to be abdominal pain for the in not any distress. He denies any nausea or vomiting. His last bowel movement was this morning. He denies any diarrhea or blood although he does note that he is intermittently constipated. Last oral intake was at 10:00 a.m. this morning. He is not on any anticoagulation, only a daily 81 mg aspirin with his last dose being 1 last evening. Related Data Home Medications Medication Instructions Recorded Confirmed aspirin 81 mg tablet,delayed 81 mg PO DAILY 02/06/19 07/16/23 release (Ghada Low Dose Aspirin) multivitamin 1 cap PO DAILY 02/06/19 07/16/23 omega-3 fatty acids 1,000 mg 1,000 mg PO BID 05/05/19 07/16/23 capsule (Fish Oil Concentrate) Allergies Allergy/AdvReac Type Severity Reaction Status Date / Time No Known Allergies Allergy Verified 11/27/23 15:03 [facility] Past Medical History Medical History Appendicitis Hyperlipidemia Hypertension Myocardial infarction (~11/07/01) Need for hepatitis C screening test negative on lab 2022 Obesity (BMI 30.0-34.9) Screening for abdominal aortic aneurysm negative US 2022 Wears glasses Surgical History Surgical History History of coronary angioplasty with insertion of stent (~11/07/01) Family History Family History Mother Cerebrovascular accident Father Family history of kidney disease Social History Social History Smoking status: Former smoker Tobacco type: cigarettes Second hand tobacco smoke exposure: No Alcohol intake: current Drinks per week: 1 Substance use: never Substance use type: does not use Do You Feel Safe in your Home?: Yes Lack of Transportation: No Lack of Food: Never True Current Housing: I Have Housing Concerned About Future Housing: No Difficulty Paying Gas/Electric Bills: No Difficulty Paying for Meds: No Currently Unemployed: No Education: Trade/Vocational Certificate Difficulty w/ Childcare or Family Care: No Living arrangements: with family Occupation/Education: retired Gender identity (if verbalized by the patient): Male Spiritual care concerns: No Agree to blood products: Yes Exam Narrative: GENERAL: Well-appearing, well-nourished, and in no acute distress. HEAD: Normocephalic, atraumatic. EYES: Non injected, non icteric ENT: Nares clear, no rhinorrhea or epistaxis. NECK: Supple. CHEST: Speaking in full sentences. No respiratory distress. HEART: Regular rate and rhythm. . ABDOMEN: Soft, nondistended. No tenderness to palpation. In particular no tenderness to palpation in the right lower quadrant. No rigidity or guarding. Not peritoneal. EXTREMITIES: Normal range of motion. No lower extremity edema. SKIN: Warm, dry, no rash. N
[2023-11-27 16:00] LABS: Basophils Percent Auto 0.3 % (0.2-1.2); Eosinophils Absolute Auto 0.2 K/mm3 (0-0.3); Eosinophils Percent Auto 1.7 % (0-4.4); Hematocrit 40.7 % (42.0-52.0); Hemoglobin 13.4 g/dL (14.0-18.0); Immature Granulocyte Absolute 0.02 K/mm3 (0.00-0.031); Immature Granulocyte Percent A 0.2 % (0-0.5); Lymphocytes Absolute Auto 2.79 K/mm3 (0.9-3.2); Lymphocytes Percent Auto 31.2 % (18.3-44.2); Mean Corpuscular HGB Conc 32.9 g/dl (32-36); Mean Corpuscular Hemoglobin 31.9 pg (26-34); Mean Corpuscular Volume 96.9 fl (80-100); Mean Platelet Volume 11.5 fl (7.4-10.4); Monocytes Absolute Auto 1.4 K/mm3 (0.1-0.6); Monocytes Percent Auto 16.1 % (2.6-8.5); Neutrophils Absolute Auto 4.5 K/mm3 (1.3-6.7); Neutrophils Percent Auto 50.5 % (45.5-73.1); Platelet Count Result 226 k/mm3 (150-375); Red Cell Distribution Width 12.1 % (11.5-14.5)
[2023-11-27 16:12] LABS: Lactic Acid Reflex 0.8 mmol/L (0.7-2.0)
[2023-11-27 16:13] LABS: Alanine Aminotransferase 38 U/L (6-50); Albumin Level 4.1 g/dL (3.5-5.1); Alkaline Phosphatase 72 U/L (38-126); Anion Gap 7 mmol/L (4-12); Aspartate Amino Transferase 43 U/L (17-59); Bilirubin,Total 0.4 mg/dL (0.2-1.3); Blood Urea Nitrogen 18 mg/dL (9-20); Calcium 8.6 mg/dL (8.4-10.2); Carbon Dioxide 29 mmol/L (22-30); Chloride 102 mmol/L (98-107); Estimated CRCL calculation 72 ml/min; Estimated Glomerular Filt Rate > 60; Glucose 96 mg/dL (65-110); Magnesium 2.2 mg/dL (1.6-2.3); Potassium 4.5 mmol/L (3.4-5.0); Sodium 138 mmol/L (137-145)
[2023-11-27 16:36] VITALS: BP 142/74; PULSE 80; RESP 16; O2SAT 99
== END 2023-11-27 16:43 | disposition home or self-care (01) ==
PROVIDERS: Emergency Provider Student in an Organized Health Care Education/Training Program; PCP Family Medicine
DX: K37 Unspecified appendicitis (principal); D64.9 Anemia, unspecified; Z79.82 Long term (current) use of aspirin; Z79.899 Other long term (current) drug therapy
CPT/HCPCS: 36415; 80053; 83605; 83735; 85025; 99283

== ENCOUNTER 2023-12-08 12:01 | Observation (INO) | payer MEDICARE, SELFPAY ==
[2023-12-08] VITALS (10 sets, daily range): BP systolic 135–165; BP diastolic 61–84; PULSE 65–75; RESP 12–17; TEMP 36.6–36.7; O2SAT 95–100; BMI 28.6
--- NOTE | ~2023-12-08 | XR_ITS ---
EXAMINATION: XR chest 2V 12/08/2023 12:26 INDICATION: Chest pain PROCEDURE: 2 view chest COMPARISON: Comparison to multiple prior studies sequentially, with oldest reviewed study dated 02/08. FINDINGS: The lungs are clear. The cardiomediastinal silhouette is within normal limits. There are no pleural effusions. There is no pneumothorax suspected. IMPRESSION: 1: NO ACUTE CARDIOPULMONARY DISEASE. Reviewed, dictated and finalized at location B.
--- NOTE | ~2023-12-08 | NM_ITS ---
EXAMINATION: NM stress w perf spect multi DATE: 12/11/2023 12:15 INDICATION: Chest pain TECHNIQUE: Rest images were obtained following intravenous administration of 9.6 mCi Tc99m tetrofosmi n ([employer]Otech). The patient performed an exercise activity. At peak exercise, 30.0 mCi Tc99m tetrofosmin (Myoview) was administered intravenously, and stress images were obtained initially in the supine po sition with repeat post stress images obtained in the prone position. Data was reconstructed into anahy rt axis and horizontal and vertical long axis SPECT images. Gated SPECT images were also obtained. COMPARISON: CT dated 11/27/2023 FINDINGS: Large severe nonreversible perfusion defect involving the apical inferior, mid inferoseptal and infer ior, basilar inferoseptal and inferior segments consistent with infarct. There is fatty atrophy of th e corresponding myocardium on CT consistent with chronic infarct. Small artifactual focus of decrease d activity at the apical and anteroapical segments which normalizes on the prone imaging. There is a small severe reversible perfusion defect at the basilar inferolateral and portion of the mid inferola teral segments consistent with ischemia. There is normal left ventricular chamber size, wall motion a nd ejection fraction. Left ventricular ejection fraction measures 55%. IMPRESSION: 1. Small region of severe ischemia at the junction of the right and circumflex coronary artery vascul ar distributions at the basilar inferolateral and mid inferolateral segments. 2. 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 2. Left ventricular ejection fraction measuring 55%. Reviewed, dictated and finalized at location A. IMPRESSION: 1. Small region of severe ischemia at the junction of the right and circumflex coronary artery vascular distributions at the basilar inferolateral and mid inf erolateral segments. 2. Adjacent large nonreversible chronic infarct in the right coronary artery va scular distribution involving the apical the basilar inferior wall and the mid and basilar inferolateral segments with associated fatty myocardial atrophy randal dent on CT. 2. Left ventricular ejection fraction measuring 55%.
--- NOTE | 2023-12-08 12:01 | ECG_ITS ---
Test Date: 2023-12-08 12:05:55 Measurements Intervals [place] Rate: 64 P: 80 MO: 192 QRS: -17 QRSD: 101 T: 0 QT: 377 QTc: 391 Interpretive Statements SINUS RHYTHM POSSIBLE ANTERIOR MYOCARDIAL INFARCTION , OF INDETERMINATE AGE [30 ms Q WAVE IN V3/V4, OR R < 0.2 mV IN V4] INFERIOR MYOCARDIAL INFARCTION , PROBABLY OLD [40+ ms Q WAVE AND/OR ST/T ABNORMALITY IN II/aVF] No previous ECG available for comparison Electronically Signed On 12-08-2023 14:49:40 CDT by Eduar Shay M.D.
[2023-12-08 12:29] LABS: Basophils Percent Auto 0.2 % (0.2-1.2); Eosinophils Percent Auto 0.4 % (0-4.4); Hematocrit 44.4 % (42.0-52.0); Hemoglobin 15.2 g/dL (14.0-18.0); Immature Granulocyte Absolute 0.03 K/mm3 (0.00-0.031); Immature Granulocyte Percent A 0.3 % (0-0.5); Lymphocytes Absolute Auto 2.97 K/mm3 (0.9-3.2); Lymphocytes Percent Auto 31.6 % (18.3-44.2); Mean Corpuscular HGB Conc 34.2 g/dl (32-36); Mean Corpuscular Hemoglobin 32.9 pg (26-34); Mean Corpuscular Volume 96.1 fl (80-100); Mean Platelet Volume 11.4 fl (7.4-10.4); Monocytes Absolute Auto 1.2 K/mm3 (0.1-0.6); Monocytes Percent Auto 13.2 % (2.6-8.5); Neutrophils Absolute Auto 5.1 K/mm3 (1.3-6.7); Neutrophils Percent Auto 54.3 % (45.5-73.1); Platelet Count Result 276 k/mm3 (150-375); Red Blood Count 4.62 M/mm3 (4.6-6.20); White Blood Count 9.4 K/mm3 (4.5-10.0)
[2023-12-08 12:42] LABS: Alanine Aminotransferase 52 U/L (6-50); Albumin Level 4.7 g/dL (3.5-5.1); Alkaline Phosphatase 67 U/L (38-126); Anion Gap 12 mmol/L (4-12); Aspartate Amino Transferase 49 U/L (17-59); Bilirubin,Total 0.7 mg/dL (0.2-1.3); Blood Urea Nitrogen 15 mg/dL (9-20); Calcium 9.1 mg/dL (8.4-10.2); Carbon Dioxide 28 mmol/L (22-30); Chloride 100 mmol/L (98-107); Estimated CRCL calculation 72 ml/min; Estimated Glomerular Filt Rate > 60; Glucose 117 mg/dL (65-110); Lipase 142 U/L (23-300); Potassium 4.1 mmol/L (3.4-5.0); Sodium 140 mmol/L (137-145)
[2023-12-08 12:45] LABS: Prothrombin Time 14.1 Seconds (11.1-14.7)
[2023-12-08 12:46] LABS: Partial Thromboplastin Time 31.2 Seconds (22.3-36.8)
[2023-12-08 12:52] LABS: Troponin I < 0.012 ng/mL (0.000-0.034)
--- NOTE | 2023-12-08 13:03 | ED.CHESTPAIN ---
HPI - Chest Pain General Chief Complaint: Chest Pain Stated Complaint: chest pressure Time Seen by Provider: 12/08/23 12:13 History of Present Illness HPI narrative: 78-year-old male presenting emergency department for evaluation for substernal chest pressure. Patient states that this has been worsening with exertion over the last few days. Patient does have a prior history of a cardiac bypass and 2009. Patient has followed up with [facility] previously. Today patient had worsening exertional chest pressure that did resolve with nitro. Upon arrival emergency department patient denies any chest pain or chest pressure. Patient is well-appearing. Patient denies any recent illnesses coughs colds or fevers. Patient does have history of high blood pressure and does take his blood pressure medications. Related Data Home Medications Medication Instructions Recorded Confirmed aspirin 81 mg tablet,delayed 81 mg PO DAILY 02/06/19 12/08/23 release (Ghada Low Dose Aspirin) multivitamin 1 cap PO DAILY 02/06/19 12/08/23 omega-3 fatty acids 1,000 mg 1,000 mg PO DAILY 05/05/19 12/08/23 capsule (Fish Oil Concentrate) Allergies Allergy/AdvReac Type Severity Reaction Status Date / Time No Known Allergies Allergy Verified 12/05/23 08:55 Review of Systems Review of Systems: All systems reviewed & are unremarkable except as noted in HPI and below PMFSH Past Medical History Medical History Carotid stenosis Coronary artery disease Hyperlipidemia Hypertension Screening for abdominal aortic aneurysm negative 2022 Surgical History Surgical History History of cataract extraction History of coronary angioplasty with insertion of stent (11/07/01) History of four vessel coronary artery bypass graft (2008) Family History Family History Mother Cerebrovascular accident Father Family history of kidney disease Social History Social History (Updated 12/08/23 @ 14:34 by Cely Benitez PA-C) Social History: Surrogate medical decision maker: Natalya Moreno, spouse. Code status: Full code. Smoking status: Former smoker Tobacco type: cigarettes Second hand tobacco smoke exposure: No Alcohol intake: former Drinks per week: 1 Substance use: never Substance use type: does not use Do You Feel Safe in your Home?: Yes Lack of Transportation: YES Lack of Food: Never True Current Housing: I Have Housing Concerned About Future Housing: No Difficulty Paying Gas/Electric Bills: No Difficulty Paying for Meds: No Currently Unemployed: YES Education: Trade/Vocational Certificate Difficulty w/ Childcare or Family Care: No Living arrangements: with family Occupation/Education: retired Spiritual care concerns: No Agree to blood products: Yes Exam Narrative: APPEARANCE: Well appearing, no pain, no distress, well-nourished. HEAD: normocephalic, atraumatic. EYES: PERRLA/EOMI, conjunctivae clear. NOSE: Normal no drainage EARS:TMS clear with good light reflex. THROAT: Pharynx clear, no exudate. NECK: Supple. No adenopathy, no masses. RESPIRATORY: Airway patent, respirations nonlabored. Clear to auscultation bilaterally, no rales, rhonchi, wheezing. CARDIOVASCULAR: Regular rate and rhythm without murmurs rubs or gallops. ABDOMINAL: Soft, nontender, nondistended, normal bowel sounds MUSCULOSKELETAL: Moves all extremities. Strength/ROM intact, No edema, No calf tenderness. NEURO: Alert. Cranial nerves II through XII intact. Grossly intact SKIN: Warm, dry. Normal Color Course Course Emergency Course: Patient was admitted to the hospitalist for further cardiac workup. Vital Signs Vital signs: Vital Signs Temperature 98 F 12/08/23 12:36 Pulse Rate 74 12/08/23 12:36 Respiratory Rate 16 12/08/23
--- NOTE | 2023-12-08 14:15 | PM.IMHP ---
H&P: HPI History of Present Illness Date/Time: 12/08/23 14:15 Chief Complaint: Chest pain. Narrative: This is a 78-year-old male with coronary artery disease status post 4 vessel bypass in 2008, carotid artery stenosis, hypertension, and hyperlipidemia who presented to the emergency department via private vehicle with complaints of of chest pain. The patient provides the following history. He was admitted to the hospital earlier this year with acute appendicitis and appendiceal abscess, treated conservatively with antibiotics. Earlier this month he once again started having right lower quadrant abdominal pain and he is currently on antibiotics. He followed up with Dr. Tsang in the office 2 days ago to discuss elective appendectomy. He is scheduled to have a stress test on 12/19/2023 prior to that surgery. He had not been having any issues with chest discomfort until the last several days. He describes heaviness in the mid chest which has been occurring with activity and resolves with rest. Today he took a nitroglycerin when the discomfort started and the heaviness resolved almost immediately. He denies associated sweats, dizziness, shortness of breath, nausea, and vomiting. In the ED: He was afebrile on arrival with stable vital signs Blood pressure has been as high as 165/68. Initial troponin was less than 0.012. The remainder of his labs were pretty unremarkable. EKG showed sinus rhythm with possible anterior WI and probably old inferior WI. no acute ST segment elevations were seen. He was given aspirin 324 mg p.o. and is being admitted in this setting for close monitoring and Cardiology consultation. Review of Systems Review of Systems: 12 systems were reviewed and are negative except for as per HPI. [facility] Past Medical History Medical History (Updated 12/08/23 @ 20:55 by Cely Benitez PA-C) Carotid stenosis Followed by Dr. Melendez. Coronary artery disease Hyperlipidemia Hypertension Screening for abdominal aortic aneurysm negative 2022 Surgical History Surgical History History of cataract extraction History of coronary angioplasty with insertion of stent (11/07/01) History of four vessel coronary artery bypass graft (2008) Family History Family History Mother Cerebrovascular accident Father Family history of kidney disease Social History Social History Social History: Surrogate medical decision maker: Natalya Brownman, spouse. Code status: Full code. Smoking status: Former smoker Tobacco type: cigarettes Second hand tobacco smoke exposure: No Alcohol intake: former Drinks per week: 1 Substance use: never Substance use type: does not use Do You Feel Safe in your Home?: Yes Lack of Transportation: YES Lack of Food: Never True Current Housing: I Have Housing Concerned About Future Housing: No Difficulty Paying Gas/Electric Bills: No Difficulty Paying for Meds: No Currently Unemployed: YES Education: Trade/Vocational Certificate Difficulty w/ Childcare or Family Care: No Living arrangements: with family Occupation/Education: retired Spiritual care concerns: No Agree to blood products: Yes Meds Home Medications and Allergies Home Medications Medication Instructions Recorded Confirmed Type aspirin 81 mg tablet,delayed 81 mg PO DAILY 02/06/19 12/08/23 History release (Ghada Low Dose Aspirin) multivitamin 1 cap PO DAILY 02/06/19 12/08/23 History omega-3 fatty acids 1,000 mg 1,000 mg PO DAILY 05/05/19 12/08/23 History capsule (Fish Oil Concentrate) metronidazole 500 mg tablet 500 mg PO Q12H #45 tabs 07/16/23 12/08/23 Rx atorvastatin 40 mg tablet 40 mg PO DAILY #90 tabs 08/14/23 12/08/23 Rx lisinopril 10 mg tablet 10 mg PO DAILY #90 tabs 09/04/23 12/08/23 Rx metoprolol tartrate 50
[2023-12-08 15:49] LABS: Troponin I < 0.012 ng/mL (0.000-0.034)
[2023-12-08] MEDS: ENOXAPARIN 40 MG/0.4 ML SYRINGE SUB-Q (16:20)
[2023-12-08 19:39] LABS: Troponin I < 0.012 ng/mL (0.000-0.034)
[2023-12-08] MEDS: METOPROLOL TARTRATE 50 MG TAB PO (22:34)
[2023-12-08] MEDS: TAMSULOSIN HCL 0.4 MG CAPSULE PO (23:05)
[2023-12-08] MEDS: OMEGA 3 POLYUNSAT FATTY ACIDS 1 GM CAP PO (23:05)
[2023-12-08] MEDS: ATORVASTATIN 40 MG TABLET PO (23:05)
[2023-12-08] MEDS: lisinopriL 10 MG TABLET PO (23:05)
[2023-12-08] MEDS: ASPIRIN 81 MG ENTERIC TABLET PO (23:05)
[2023-12-09] VITALS (16 sets, daily range): BP systolic 125–145; BP diastolic 54–65; PULSE 53–73; RESP 16–20; TEMP 36.3–37.1; O2SAT 97–100
[2023-12-09 05:32] LABS: Hematocrit 41.5 % (42.0-52.0); Hemoglobin 14.1 g/dL (14.0-18.0); Mean Corpuscular Hemoglobin 32.8 pg (26-34); Mean Corpuscular Volume 96.5 fl (80-100); Mean Platelet Volume 11.3 fl (7.4-10.4); Platelet Count Result 226 k/mm3 (150-375); Red Cell Distribution Width 12.2 % (11.5-14.5); White Blood Count 9.6 K/mm3 (4.5-10.0)
[2023-12-09 05:42] LABS: Anion Gap 6 mmol/L (4-12); Blood Urea Nitrogen 15 mg/dL (9-20); Calcium 8.8 mg/dL (8.4-10.2); Carbon Dioxide 32 mmol/L (22-30); Chloride 102 mmol/L (98-107); Cholesterol 128 mg/dL (0-200); Estimated CRCL calculation 63 ml/min; Estimated Glomerular Filt Rate > 60; Glucose 107 mg/dL (65-110); HDL Direct 31 mg/dL; Magnesium 2.2 mg/dL (1.6-2.3); Potassium 4.6 mmol/L (3.4-5.0); Sodium 140 mmol/L (137-145); Triglycerides 175 mg/dL (<150)
[2023-12-09 05:53] LABS: LDL Cholesterol Direct 63 mg/dL
[2023-12-09] MEDS: METOPROLOL TARTRATE 50 MG TAB PO ×2 (09:10→21:07)
[2023-12-09] MEDS: MULTIVITAMINS THERAPEUTIC TAB (*BKC) 1 TABLET PO (09:10)
[2023-12-09] MEDS: ENOXAPARIN 40 MG/0.4 ML SYRINGE SUB-Q (09:10)
--- NOTE | 2023-12-09 09:23 | PM.IMPN ---
Progress Note: A&P Assessment and Plan (1) Chest pain: Code(s): R07.9 - Chest pain, unspecified Status: Acute Assessment and Plan: Cardiac enzymes are negative. Cardiology consult ordered. Patient is scheduled for stress test. (2) Coronary artery disease: Code(s): I25.10 - Atherosclerotic heart disease of [place] coronary artery without angina pectoris Status: Acute Assessment and Plan: Stable on current medications, will continue current treatment. (3) Hypertension: Code(s): I10 - Essential (primary) hypertension Status: Acute Assessment and Plan: Stable on current medications, continue current treatment. (4) Hyperlipidemia: Code(s): E78.5 - Hyperlipidemia, unspecified Status: Acute Assessment and Plan: Stable on current medications, will continue current treatment. Plan The patient presented to the emergency department for evaluation of mid chest heaviness with activity the last several days as detailed in HPI. Labs, imaging, EKG, and all reports were personally reviewed. History is concerning for stable angina; he has been without discomfort since admission. EKG showed a possible anterior [place] of indeterminate age and probably old inferior [place]. Troponin has thus far been negative and will be trended. Continue aspirin, statin, and beta-govind. Cardiology has been consulted. Blood pressures were reviewed and they are stable. His medications will be reviewed and resumed as appropriate. Findings and treatment plan were discussed with the patient. Questions were solicited and answered to satisfaction. The patient's medical management will be taken over by the hospitalist team in a.m. 12/09/2023 Patient ruled out by enzymes. Plan is to continue current treatment and do stress test today. Subjective Date/time seen: 12/09/23 09:23 Interval history: Patient is feeling better no. Patient denies any chest pain. No shortness of breath. No abdominal pain, nausea, no vomiting. Mood stable. Review of Systems Review of Systems: 12 systems were reviewed and are negative except for as per HPI. Exam Narrative: General: Well-developed gentleman sitting on side of the bed in no distress. Weight: 90.5 kg. BMI: 28.6. HEENT: PERRL, EOMI. Sclera anicteric. Oral mucosa moist. Oropharynx clear. Neck: Supple. Respiratory: Lungs are clear to auscultation bilaterally. Cardiovascular: Regular rate and rhythm with S1-S2. Chest: Sternotomy scar noted with keloids. Gastrointestinal: Abdomen is soft, nontender, and nondistended with positive bowel sounds. Skin: Warm and dry. No rash or lesions on limited exam. Extremities: No cyanosis, clubbing, or edema. Radial and pedal pulses intact. Varicosities noted. Negative [place] sign. Neurological: Alert. Cranial nerves 2-12 are grossly intact. No gross focal deficits to casual conversation. Psychiatric: Pleasant and cooperative with normal mood and affect. Judgment and insight intact. Objective Data Vital Signs Vital Signs: Vital Signs - 24 hr 12/08/23 12:36 12/08/23 12:40 12/08/23 13:24 Temperature 36.6 C Pulse Rate 74 68 Respiratory Rate 16 12 Blood Pressure 165/68 H 152/84 H Pulse Oximetry 99 96 Oxygen Delivery Room Air Room Air 12/08/23 14:03 12/08/23 16:00 12/08/23 16:00 Temperature 36.7 C Pulse Rate 71 69 69 Respiratory Rate 17 16 Blood Pressure 135/75 156/64 H Pulse Oximetry 95 98 Oxygen Delivery 12/08/23 16:00 12/08/23 18:00 12/08/23 21:36 Temperature 36.6 C Pulse Rate 69 68 Respiratory Rate 16 Blood Pressure 152/70 H Pulse Oximetry 98 96 Oxygen Delivery Room Air 12/08/23 22:34 12/08/23 23:51 12/08/23 20:00 Temperature 36.6 C Pulse Rate 75 65 Respiratory Rate 16 Blood Pressure 141/61 H Pulse Oximetry 100 Oxygen Delivery Room Air 12/08/23 20:00 12/08/23 22:00 12/09/23 00:00 Temperature Pulse Rate 68 73 60 Respiratory Rate
--- NOTE | 2023-12-09 13:21 | PM.CNCAR ---
Assessment and Plan Assessment and plan (1) Hypertension: Code(s): I10 - Essential (primary) hypertension Status: Acute Plan Unstable angina Coronary arteries history CABG 2008 Hypertension Mixed dyslipidemia Plan Aspirin 81 mg daily Statin Lisinopril Metoprolol Nuclear stress test on Sunday History of Present Illness History of Present Illness Consult date/time: 12/09/23 13:21 Reason For Visit: chest pain Narrative: 78-year-old male patient presents to the hospital with recurrent episodes of chest pain for last 2 days. Despite his recent radiating pressure-like, intermittent lasting for 15 minutes and have been 6 times over last 2 days. He was admitted also for workup for acute current syndrome with negative cardiac enzymes and no dynamic EKG changes. He was scheduled for stress test later this month. The patient has a history of CABG 2008. Review of Systems Review of Systems: All systems reviewed & are unremarkable except as noted in HPI and below PMFSH Past Medical History Medical History (Updated 12/08/23 @ 20:55 by Cely Benitez PA-C) Carotid stenosis Followed by Dr. Melendez. Coronary artery disease Hyperlipidemia Hypertension Screening for abdominal aortic aneurysm negative 2022 Surgical History Surgical History History of cataract extraction History of coronary angioplasty with insertion of stent (11/07/01) History of four vessel coronary artery bypass graft (2008) Family History Family History Mother Cerebrovascular accident Father Family history of kidney disease Social History Social History Social History: Surrogate medical decision maker: Natalya Moreno, spouse. Code status: Full code. Smoking status: Former smoker Tobacco type: cigarettes Second hand tobacco smoke exposure: No Alcohol intake: former Drinks per week: 1 Substance use: never Substance use type: does not use Do You Feel Safe in your Home?: Yes Lack of Transportation: YES Lack of Food: Never True Current Housing: I Have Housing Concerned About Future Housing: No Difficulty Paying Gas/Electric Bills: No Difficulty Paying for Meds: No Currently Unemployed: YES Education: Trade/Vocational Certificate Difficulty w/ Childcare or Family Care: No Living arrangements: with family Occupation/Education: retired Spiritual care concerns: No Agree to blood products: Yes Meds Home Medications and Allergies Home Medications Medication Instructions Recorded Confirmed Type aspirin 81 mg tablet,delayed 81 mg PO HS 02/06/19 12/08/23 History release (Ghada Low Dose Aspirin) multivitamin 1 cap PO DAILY 02/06/19 12/08/23 History omega-3 fatty acids 1,000 mg 1,000 mg PO HS 05/05/19 12/08/23 History capsule (Fish Oil Concentrate) atorvastatin 40 mg tablet 40 mg PO DAILY #90 tabs 08/14/23 12/08/23 Rx lisinopril 10 mg tablet 10 mg PO DAILY #90 tabs 09/04/23 12/08/23 Rx metoprolol tartrate 50 mg tablet 50 mg PO BID #180 tabs 11/12/23 12/08/23 Rx tamsulosin 0.4 mg capsule (Flomax) 0.4 mg PO DAILY #90 caps 11/26/23 12/08/23 Rx Allergies Allergy/AdvReac Type Severity Reaction Status Date / Time No Known Allergies Allergy Verified 12/05/23 08:55 Vital Signs Vital Signs - 24 hr 12/08/23 13:24 12/08/23 14:03 12/08/23 16:00 Temperature 36.7 C Pulse Rate 68 71 69 Respiratory Rate 12 17 16 Blood Pressure 152/84 H 135/75 156/64 H Pulse Oximetry 96 95 98 Oxygen Delivery 12/08/23 16:00 12/08/23 16:00 12/08/23 18:00 Temperature Pulse Rate 69 69 Respiratory Rate Blood Pressure Pulse Oximetry 98 Oxygen Delivery Room Air 12/08/23 21:36 12/08/23 22:34 12/08/23 23:51 Temperature 36.6 C 36.6 C Pulse Rate 68 75 65 Respiratory Rate 16 16 Blood
[2023-12-09] MEDS: ASPIRIN 81 MG ENTERIC TABLET PO (21:06)
[2023-12-09] MEDS: OMEGA 3 POLYUNSAT FATTY ACIDS 1 GM CAP PO (21:07)
[2023-12-09] MEDS: ATORVASTATIN 40 MG TABLET PO (21:07)
[2023-12-09] MEDS: TAMSULOSIN HCL 0.4 MG CAPSULE PO (21:07)
[2023-12-09] MEDS: lisinopriL 10 MG TABLET PO (21:07)
[2023-12-10] VITALS (16 sets, daily range): BP systolic 104–158; BP diastolic 39–84; PULSE 52–80; RESP 12–24; TEMP 36.2–36.8; O2SAT 100
[2023-12-10] MEDS: MULTIVITAMINS THERAPEUTIC TAB (*BKC) 1 TABLET PO (08:47)
[2023-12-10] MEDS: ENOXAPARIN 40 MG/0.4 ML SYRINGE SUB-Q (08:48)
[2023-12-10] MEDS: METOPROLOL TARTRATE 50 MG TAB PO ×2 (08:48→20:23)
--- NOTE | 2023-12-10 09:47 | PM.PNCARD ---
Progress Note: A&P Assessment and Plan (1) Chest pain: Code(s): R07.9 - Chest pain, unspecified Status: Acute Plan Unstable angina Coronary arteries history CABG 2009 Hypertension Mixed dyslipidemia Plan Aspirin 81 mg daily Statin Lisinopril Metoprolol Nuclear stress test tomorrow Subjective Date/time seen: 12/10/23 09:47 Interval history: No acute events Review of Systems Review of Systems: All systems reviewed & are unremarkable except as noted in HPI and below Exam Neck: Neck: supple and no JVD Carotids: no bruits Resp: Auscultation: clear to auscultation bilaterally and lung sounds not diminished Other: No chest wall tenderness Cardio: Rate: regular rate Rhythm: regular rhythm Heart sounds: no gallops, no murmurs and no rubs GI: GI Palp: Yes Soft to palpation and No Tenderness to palpation present (GI) Auscultation: normal bowel sounds Skin: General skin exam: normal color, rashes and/or lesions noted and no erythema Other: Warm Objective Data Vital Signs Vital Signs: Vital Signs - 24 hr 12/09/23 10:00 12/09/23 11:50 12/09/23 11:50 Temperature Pulse Rate 72 72 73 Respiratory Rate Blood Pressure Pulse Oximetry 100 Oxygen Delivery Room Air 12/09/23 12:00 12/09/23 14:00 12/09/23 16:00 Temperature 37.1 C Pulse Rate 56 L 56 L 56 L Respiratory Rate 20 Blood Pressure 125/62 Pulse Oximetry 97 Oxygen Delivery 12/09/23 16:00 12/09/23 18:00 12/09/23 16:00 Temperature 36.7 C Pulse Rate 68 67 67 Respiratory Rate 20 Blood Pressure 137/65 Pulse Oximetry 97 100 Oxygen Delivery Room Air 12/09/23 20:00 12/09/23 21:07 12/09/23 20:30 Temperature 36.6 C Pulse Rate 64 70 Respiratory Rate 18 Blood Pressure 133/56 L Pulse Oximetry 100 Oxygen Delivery Room Air 12/09/23 20:00 12/09/23 22:00 12/10/23 00:00 Temperature 36.4 C Pulse Rate 67 53 L 60 Respiratory Rate 18 Blood Pressure 121/44 L Pulse Oximetry 100 Oxygen Delivery 12/10/23 00:00 12/10/23 00:00 12/10/23 02:00 Temperature Pulse Rate 52 L 59 L Respiratory Rate Blood Pressure Pulse Oximetry Oxygen Delivery Room Air 12/10/23 04:00 12/10/23 04:00 12/10/23 04:00 Temperature 36.6 C Pulse Rate 77 67 Respiratory Rate 18 Blood Pressure 104/39 L Pulse Oximetry 100 Oxygen Delivery Room Air 12/10/23 06:00 12/10/23 08:00 12/10/23 08:48 Temperature 36.8 C Pulse Rate 62 80 77 Respiratory Rate 12 Blood Pressure 118/84 Pulse Oximetry 100 Oxygen Delivery Intake/Output Intake/Output: Intake & Output 12/07/23 12/08/23 12/09/23 12/10/23 23:59 23:59 23:59 23:59 Intake Total 440 2560 350 Output Total 450 1300 1100 Balance -10 1260 -750 Meds/Results Medications: Active Medications Generic Name Dose Route Start Last Admin Trade Name Freq PRN Reason Stop Dose Admin Acetaminophen 650 mg 12/08/23 14:36 Acetaminophen 325 Mg Tablet PO Q6H PRN Mild Pain (1-3) or Fever Aspirin 81 mg 12/08/23 22:45 12/09/23 21:06 Aspirin 81 Mg Enteric Tablet PO 81 mg HS TANG Administration Atorvastatin Calcium 40 mg 12/08/23 22:45 12/09/23 21:07 Atorvastatin 40 Mg Tablet PO 40 mg HS TANG Administration Enoxaparin Sodium 40 mg 12/08/23 14:40 12/10/23 08:48 Enoxaparin 40 Mg/0.4 Ml Syringe SUB-Q 40 mg DAILY TANG Administration Fish Oil 1 gm 12/08/23 22:45 12/09/23 21:07 [place] 3 Polyunsat Fatty Acids 1 Gm Cap PO 1 gm HS TANG Administration Lisinopril 10 mg 12/08/23 22:45 12/09/23 21:07 Lisinopril 10 Mg Tablet PO 10 mg HS TANG Administration Metoprolol Tartrate 50 mg 12/08/23 21:00 12/10/23 08:48 Metoprolol Tartrate 50 Mg Tab PO 50 mg Q12HR TANG Administration Morphine Sulfate 2 mg 12/08/23 14:36 Morphine Sulfate (*Crx) 2 Mg/Ml Inj IV PUSH Q4H PRN Pain Rated 7-10 Multivitamins Therapeutic 1 ta
--- NOTE | 2023-12-10 12:02 | PM.IMPN ---
Progress Note: A&P Assessment and Plan (1) Chest pain: Code(s): R07.9 - Chest pain, unspecified Status: Acute Assessment and Plan: Cardiac enzymes are negative. Cardiology consult ordered. Patient is scheduled for stress test. (2) Coronary artery disease: Code(s): I25.10 - Atherosclerotic heart disease of [place] coronary artery without angina pectoris Status: Acute Assessment and Plan: Stable on current medications, will continue current treatment. (3) Hypertension: Code(s): I10 - Essential (primary) hypertension Status: Acute Assessment and Plan: Stable on current medications, continue current treatment. (4) Hyperlipidemia: Code(s): E78.5 - Hyperlipidemia, unspecified Status: Acute Assessment and Plan: Stable on current medications, will continue current treatment. Plan The patient presented to the emergency department for evaluation of mid chest heaviness with activity the last several days as detailed in HPI. Labs, imaging, EKG, and all reports were personally reviewed. History is concerning for stable angina; he has been without discomfort since admission. EKG showed a possible anterior VA of indeterminate age and probably old inferior VA. Troponin has thus far been negative and will be trended. Continue aspirin, statin, and beta-govind. Cardiology has been consulted. Blood pressures were reviewed and they are stable. His medications will be reviewed and resumed as appropriate. Findings and treatment plan were discussed with the patient. Questions were solicited and answered to satisfaction. The patient's medical management will be taken over by the hospitalist team in a.m. 12/09/2023 Patient ruled out by enzymes. Plan is to continue current treatment and do stress test today. 12/10/2023 Patient is feeling better now. Cardiology consult noted. Patient is scheduled for stress test tomorrow. Subjective Date/time seen: 12/10/23 12:02 Interval history: Patient was seen during the morning rounds today. Patient is feeling better. No shortness of breath or chest pain. No abdominal pain, nausea, no vomiting. Mood stable. Review of Systems Review of Systems: 12 systems were reviewed and are negative except for as per HPI. Exam Narrative: General: Well-developed gentleman sitting on side of the bed in no distress. Weight: 90.5 kg. BMI: 28.6. HEENT: PERRL, EOMI. Sclera anicteric. Oral mucosa moist. Oropharynx clear. Neck: Supple. Respiratory: Lungs are clear to auscultation bilaterally. Cardiovascular: Regular rate and rhythm with S1-S2. Chest: Sternotomy scar noted with keloids. Gastrointestinal: Abdomen is soft, nontender, and nondistended with positive bowel sounds. Skin: Warm and dry. No rash or lesions on limited exam. Extremities: No cyanosis, clubbing, or edema. Radial and pedal pulses intact. Varicosities noted. Negative Ish[place] sign. Neurological: Alert. Cranial nerves 2-12 are grossly intact. No gross focal deficits to casual conversation. Psychiatric: Pleasant and cooperative with normal mood and affect. Judgment and insight intact. Objective Data Vital Signs Vital Signs: Vital Signs - 24 hr 12/09/23 14:00 12/09/23 16:00 12/09/23 16:00 Temperature Pulse Rate 56 L 56 L 68 Respiratory Rate Blood Pressure Pulse Oximetry 97 Oxygen Delivery Room Air 12/09/23 18:00 12/09/23 16:00 12/09/23 20:00 Temperature 36.7 C 36.6 C Pulse Rate 67 67 64 Respiratory Rate 20 18 Blood Pressure 137/65 133/56 L Pulse Oximetry 100 100 Oxygen Delivery 12/09/23 21:07 12/09/23 20:30 12/09/23 20:00 Temperature Pulse Rate 70 67 Respiratory Rate Blood Pressure Pulse Oximetry Oxygen Delivery Room Air 12/09/23 22:00 12/10/23 00:00 12/10/23 00:00 Temperature 36.4 C Pulse Rate 53 L 60 52 L Respiratory Rate 18 Blood Pressure 121/44 L Pulse Oximetry 100 Oxygen Delivery
[2023-12-10] MEDS: OMEGA 3 POLYUNSAT FATTY ACIDS 1 GM CAP PO (20:22)
[2023-12-10] MEDS: ASPIRIN 81 MG ENTERIC TABLET PO (20:22)
[2023-12-10] MEDS: TAMSULOSIN HCL 0.4 MG CAPSULE PO (20:23)
[2023-12-10] MEDS: ATORVASTATIN 40 MG TABLET PO (20:23)
[2023-12-10] MEDS: lisinopriL 10 MG TABLET PO (20:23)
[2023-12-11] VITALS (9 sets, daily range): BP systolic 126–150; BP diastolic 70–72; PULSE 69–80; RESP 16–24; TEMP 36.4–36.5; O2SAT 98–100
--- NOTE | 2023-12-11 | EST_ITS ---
Patient Info Name: Angelina Moreno Age: 78 years : 1945 Gender: Male Ht: 70 in Wt: 205 lbs BSA: 2.17 m2 HR: 79 bpm BP: 158 / 79 mmHg Exam Date: 12/11/2023 11:16 AM Exam Location: [facility] Patient Status: Inpatient Admit Date: 12/08/2023 Staff Ordering Physician: Eduar Shay MD Attending Provider: Gunnar Xiong MD Exercise Technologist: Maddy Pate CT Nurse: Suni Michael APN Exam Type: CA stress test treadmill w NM Study Info A nuclear stress test was performed. Summary 1. Exercise capacity fair to good at 6-10 METS. 2. Hypertensive blood pressure response to exercise. 3. Baseline motion artifact limits interpretation, however, no clear STTW changes diagnostic of ischemia with exercise. 4. Occasional PVCs. 5. Please correlate with nuclear medicine images, reported separately. 6. Stress test supervised by Suni Michael NP. Stress test interpreted by Esau Velasquez MD. Protocol: [place] Stress ECG Details Stage: REST Duration (min): 5 min : 37 sec Speed (mph): 0.0 Grade (%): 0 HR (bpm): 102 SBP (mmHg): 158 DBP (mmHg): 79 METS: --- Stage: STAGE 1 Duration (min): 1 min : 0 sec Speed (mph): 1.7 Grade (%): 10 HR (bpm): 104 SBP (mmHg): 158 DBP (mmHg): 79 METS: --- Stage: STAGE 1 Duration (min): 2 min : 0 sec Speed (mph): 1.7 Grade (%): 10 HR (bpm): 112 SBP (mmHg): 158 DBP (mmHg): 79 METS: --- Stage: STAGE 1 Duration (min): 3 min : 0 sec Speed (mph): 1.7 Grade (%): 10 HR (bpm): 123 SBP (mmHg): 189 DBP (mmHg): 48 METS: --- Stage: STAGE 2 Duration (min): 1 min : 0 sec Speed (mph): 2.5 Grade (%): 12 HR (bpm): 137 SBP (mmHg): 189 DBP (mmHg): 48 METS: --- Stage: STAGE 2 Duration (min): 1 min : 15 sec Speed (mph): 2.5 Grade (%): 12 HR (bpm): 139 SBP (mmHg): 189 DBP (mmHg): 48 METS: --- Stage: RECOVERY Duration (min): 0 min : 44 sec Speed (mph): 0.0 Grade (%): 0 HR (bpm): 132 SBP (mmHg): 203 DBP (mmHg): 48 METS: --- Stage: RECOVERY Duration (min): 1 min : 44 sec Speed (mph): 0.0 Grade (%): 0 HR (bpm): 120 SBP (mmHg): 203 DBP (mmHg): 48 METS: --- Stage: RECOVERY Duration (min): 2 min : 44 sec Speed (mph): 0.0 Grade (%): 0 HR (bpm): 103 SBP (mmHg): 203 DBP (mmHg): 48 METS: --- Stage: RECOVERY Duration (min): 3 min : 44 sec Speed (mph): 0.0 Grade (%): 0 HR (bpm): 96 SBP (mmHg): 200 DBP (mmHg): 52 METS: --- Stage: RECOVERY Duration (min): 4 min : 44 sec Speed (mph): 0.0 Grade (%): 0 HR (bpm): 94 SBP (mmHg): 200 DBP (mmHg): 52 METS: --- Stage: RECOVERY Duration (min): 5 min : 9 sec Speed (mph): 0.0 Grade (%): 0 HR (bpm): 90 SBP (mmHg): 168 DBP (mmHg): 59 METS: --- Rest HR: 102 bpm Peak HR: 144 bpm Rest Sys BP: 158 mmHg Peak Sys BP: 203 mmHg Max Pred HR: 144 bpm % Max Pred HR: 100 % Target HR: 122 bpm Max RPP: 29,232 bpm*mmHg
--- NOTE | 2023-12-11 08:07 | PM.IMPN ---
Progress Note: A&P Assessment and Plan (1) Chest pain: Code(s): R07.9 - Chest pain, unspecified Status: Acute Assessment and Plan: Cardiac enzymes are negative. Cardiology consult ordered. Patient is scheduled for stress test. (2) Coronary artery disease: Code(s): I25.10 - Atherosclerotic heart disease of [place] coronary artery without angina pectoris Status: Acute Assessment and Plan: Stable on current medications, will continue current treatment. (3) Hypertension: Code(s): I10 - Essential (primary) hypertension Status: Acute Assessment and Plan: Stable on current medications, continue current treatment. (4) Hyperlipidemia: Code(s): E78.5 - Hyperlipidemia, unspecified Status: Acute Assessment and Plan: Stable on current medications, will continue current treatment. Plan The patient presented to the emergency department for evaluation of mid chest heaviness with activity the last several days as detailed in HPI. Labs, imaging, EKG, and all reports were personally reviewed. History is concerning for stable angina; he has been without discomfort since admission. EKG showed a possible anterior KS of indeterminate age and probably old inferior KS. Troponin has thus far been negative and will be trended. Continue aspirin, statin, and beta-govind. Cardiology has been consulted. Blood pressures were reviewed and they are stable. His medications will be reviewed and resumed as appropriate. 12/09/2023 Patient ruled out by enzymes. Plan is to continue current treatment and do stress test today. 12/10/2023 Patient is feeling better now. Cardiology consult noted. Patient is scheduled for stress test tomorrow. Time Spent With Patient Time with patient: Greater than 35 minutes Subjective Date/time seen: 12/11/23 08:07 Interval history: Retrieved from H/P: This is a 78-year-old male with coronary artery disease status post 4 vessel bypass in 2008, carotid artery stenosis, hypertension, and hyperlipidemia who presented to the emergency department via private vehicle with complaints of of chest pain. The patient provides the following history. He was admitted to the hospital earlier this year with acute appendicitis and appendiceal abscess, treated conservatively with antibiotics. Earlier this month he once again started having right lower quadrant abdominal pain and he is currently on antibiotics. He followed up with Dr. Tsang in the office 2 days ago to discuss elective appendectomy. He is scheduled to have a stress test on 12/19/2023 prior to that surgery. He had not been having any issues with chest discomfort until the last several days. He describes heaviness in the mid chest which has been occurring with activity and resolves with rest. Today he took a nitroglycerin when the discomfort started and the heaviness resolved almost immediately. He denies associated sweats, dizziness, shortness of breath, nausea, and vomiting. In the ED: He was afebrile on arrival with stable vital signs Blood pressure has been as high as 165/68. Initial troponin was less than 0.012. The remainder of his labs were pretty unremarkable. EKG showed sinus rhythm with possible anterior KS and probably old inferior KS. no acute ST segment elevations were seen. He was given aspirin 324 mg p.o. and is being admitted in this setting for close monitoring and Cardiology consultation. 12/10 assuming care. pt is pain free, alert, oriented. stress test today. hoping to go home after the dax Review of Systems Review of Systems: 12 systems were reviewed and are negative except for as per HPI. Exam Narrative: General: Well-developed gentleman sitting on side of the bed in no distress. Weight: 90.5 kg. BMI: 28.6. HEENT: PERRL, EOMI. Sclera anicteric. Oral mucosa moist. Oropharynx clear. Neck: Supple. Respiratory: Lungs are clear to auscultation bilaterally. Cardiovascular: Regular rate and
--- NOTE | 2023-12-11 08:35 | PM.PNCARD ---
Progress Note: A&P Assessment and Plan (1) Chest pain: Code(s): R07.9 - Chest pain, unspecified Status: Acute Plan Unstable angina Coronary arteries history CABG 2009 Hypertension Mixed dyslipidemia Plan Aspirin 81 mg daily Statin Lisinopril Metoprolol Nuclear treadmill stress test performed this morning. Results pending. If negative, can be discharged from a cardiac perspective. Subjective Date/time seen: 12/11/23 08:35 Interval history: Cardiology follow up for chest pain Date of service 12/11/2023: Patient resting comfortably in bed and has no complaints. States he has not had any further chest pain Review of Systems Review of Systems: All systems reviewed & are unremarkable except as noted in HPI and below Exam Const: General: comfortable and no acute distress Other: Able to lie flat HENMT: Face/Nose/Sinus: Normal nares present and no epistaxis Mouth: Yes moist mucous membranes Eyes: Sclera: sclerae normal Pupils: Equal, round and reactive pupils present Neck: Neck: supple and no JVD Carotids: no bruits Resp: Auscultation: clear to auscultation bilaterally and lung sounds not diminished Other: No chest wall tenderness Cardio: Rate: regular rate Rhythm: regular rhythm Heart sounds: no gallops, no murmurs and no rubs GI: Auscultation: normal bowel sounds Skin: General skin exam: normal color, rashes and/or lesions noted and no erythema Other: Warm Neuro: Cranial nerves: Yes Equal, round and reactive pupils present Speech: normal speech Other: No obvious focal deficit or facial asymmetry Extrem: General: no edema Other: Normal capillary refills Intact distal pulses. Objective Data Vital Signs Vital Signs: Vital Signs - 24 hr 12/10/23 08:48 12/10/23 10:00 12/10/23 12:00 Temperature 36.7 C Pulse Rate 77 67 63 Respiratory Rate 16 Blood Pressure 118/48 L Pulse Oximetry 100 Oxygen Delivery 12/10/23 12:00 12/10/23 12:00 12/10/23 14:00 Temperature Pulse Rate 59 L 69 Respiratory Rate Blood Pressure Pulse Oximetry Oxygen Delivery Room Air 12/10/23 16:00 12/10/23 16:00 12/10/23 16:00 Temperature 36.2 C L Pulse Rate 70 73 Respiratory Rate 24 H Blood Pressure 146/60 H Pulse Oximetry 100 Oxygen Delivery Room Air 12/10/23 18:00 12/10/23 20:20 12/10/23 20:23 Temperature 36.4 C Pulse Rate 64 59 L 57 L Respiratory Rate 24 H Blood Pressure 158/53 H Pulse Oximetry 100 Oxygen Delivery 12/10/23 23:51 12/10/23 20:00 12/10/23 22:00 Temperature 36.5 C Pulse Rate 65 59 L 74 Respiratory Rate 24 H Blood Pressure 115/39 L Pulse Oximetry 100 Oxygen Delivery 12/11/23 00:00 12/10/23 20:15 12/10/23 23:50 Temperature Pulse Rate 69 Respiratory Rate Blood Pressure Pulse Oximetry Oxygen Delivery Room Air Room Air 12/11/23 02:00 12/11/23 06:09 12/11/23 04:00 Temperature 36.5 C Pulse Rate 69 75 69 Respiratory Rate 24 H Blood Pressure 150/70 H Pulse Oximetry 98 Oxygen Delivery 12/11/23 06:00 12/11/23 04:40 Temperature Pulse Rate 79 Respiratory Rate Blood Pressure Pulse Oximetry Oxygen Delivery Room Air Intake/Output Intake/Output: Intake & Output 12/08/23 12/09/23 12/10/23 12/11/23 23:59 23:59 23:59 23:59 Intake Total 440 2560 2930 Output Total 450 1300 4150 1100 Balance -10 0167 -1998 -0973 Meds/Results Medications: Active Medications Generic Name Dose Route Start Last Admin Trade Name Roderickq PRN Reason Stop Dose Admin Acetaminophen 650 mg 12/08/23 14:36 Acetaminophen 325 Mg Tablet PO Q6H PRN Mild Pain (1-3) or Fever Aspirin 81 mg 12/08/23 22:45 12/10/23 20:22 Aspirin 81 Mg Enteric Tablet PO 81 mg HS TANG Administration Atorvastatin Calcium 40 mg 12/08/23 22:45 12/10/23 20:23 Atorvastatin 40 Mg Tablet PO 40 mg HS TANG Administration Enox
[2023-12-11] MEDS: MULTIVITAMINS THERAPEUTIC TAB (*BKC) 1 TABLET PO (08:37)
[2023-12-11] MEDS: ENOXAPARIN 40 MG/0.4 ML SYRINGE SUB-Q (08:37)
--- NOTE | 2023-12-11 13:06 | PM.DS ---
DS: Admitting Diagnosis Discharge Date 12/10 Admitting Diagnosis chest pain DS: Summary Hospital Course Hospital Course: Retrieved from H/P: This is a 78-year-old male with coronary artery disease status post 4 vessel bypass in 2008, carotid artery stenosis, hypertension, and hyperlipidemia who presented to the emergency department via private vehicle with complaints of of chest pain. The patient provides the following history. He was admitted to the hospital earlier this year with acute appendicitis and appendiceal abscess, treated conservatively with antibiotics. Earlier this month he once again started having right lower quadrant abdominal pain and he is currently on antibiotics. He followed up with Dr. Tsang in the office 2 days ago to discuss elective appendectomy. He is scheduled to have a stress test on 12/19/2023 prior to that surgery. He had not been having any issues with chest discomfort until the last several days. He describes heaviness in the mid chest which has been occurring with activity and resolves with rest. Today he took a nitroglycerin when the discomfort started and the heaviness resolved almost immediately. He denies associated sweats, dizziness, shortness of breath, nausea, and vomiting. In the ED: He was afebrile on arrival with stable vital signs Blood pressure has been as high as 165/68. Initial troponin was less than 0.012. The remainder of his labs were pretty unremarkable. EKG showed sinus rhythm with possible anterior ND and probably old inferior ND. no acute ST segment elevations were seen. He was given aspirin 324 mg p.o. and is being admitted in this setting for close monitoring and Cardiology consultation. 12/10 assuming care. pt is pain free, alert, oriented. stress test today. hoping to go home after the test Status at Discharge Functional status at discharge: independent ambulation Overall status at discharge: patient is back to baseline Time Spent with Patient Time attestation: Total time spent providing and/or coordinating discharge services: Exam Const: General: comfortable DS: Data Data Completed and Pending Completed studies during hospitalization: none Procedures/Treatments: stress test Discharge Plan Discharge Consulting providers: Eduar Shay Discharging Clinician: Tamra Saab Patient Disposition: Home, Self-Care Activity: may shower Diet: as tolerated and heart healthy Discharge Instructions: your stress test is negative please f/u with cardiology continue to take you meds Patient Instructions: Antibiotic Form Stand Alone Forms: General Discharge Information Follow-up/Referrals: Eduar Shay MD [Physician] - 2 Weeks Wilfredo Mcpherson MD [Primary Care Provider] - 1 Week Discharge Medications: Continued omega-3 fatty acids [Fish Oil Concentrate] 1,000 mg capsule 1,000 mg PO HS aspirin [Ghada Low Dose Aspirin] 81 mg Tablet,Delayed Release (Dr/Ec) 81 mg PO HS multivitamin Capsule 1 cap PO DAILY atorvastatin 40 mg tablet 40 mg PO DAILY Qty: 90 1RF lisinopril 10 mg tablet 10 mg PO DAILY Qty: 90 1RF metoprolol tartrate 50 mg tablet 50 mg PO BID Qty: 180 1RF tamsulosin [Flomax] 0.4 mg capsule 0.4 mg PO DAILY Qty: 90 1RF Date of admission: 12/08/23 13:16 Primary Care Provider: Wilfredo Mcpherson Admitting Provider: Gunnar Xiong Attending physician on admission: Gunnar Xiong Condition: Stable Hospitalist MIPS Heart Failure (Exclusion) Patient has history of Heart Transplant or Left Ventricular Assistive Device?: No IF YES, STOP HERE Heart Failure (Qualifier) Patient has current or prior documentation of LVEF less than or equal to 40%, or mod/servere depressed LVSF?: No IF NO, STOP HERE
== END 2023-12-11 15:33 | disposition home or self-care (01) ==
LOC: ANHED 13:18 → ANHIMU 13:50
PROVIDERS: Emergency Medicine; Physician Assistant; Admitting Provider General Practice; Emergency Provider Emergency Medicine; PCP Family Medicine; Visit Provider General Practice
DX: I25.110 Atherosclerotic heart disease of native coronary artery with unstable angina pectoris (principal); I10 Essential (primary) hypertension; E78.2 Mixed hyperlipidemia; Z95.5 Presence of coronary angioplasty implant and graft; Z95.1 Presence of aortocoronary bypass graft; Z87.891 Personal history of nicotine dependence; Z79.82 Long term (current) use of aspirin
CPT/HCPCS: 36415; 71046; 78452; 80048; 80053; 80061; 83690; 83735; 84484; 85025; 85027; 85610; 85730; 93005; 93017; 96372; 99285; A9270; A9502; G0378; J1650

== ENCOUNTER 2024-02-20 01:31 | Day surgery (SDC) | payer MEDICARE, SELFPAY ==
[2024-02-08 14:50] VITALS: BMI 31.2
--- NOTE | 2024-02-08 15:05 | PC.NURSE ---
Report to the Outpatient Waiting Room, entrance under the green pavilion located off [facility], at time _10:00am_on date _02/20/24 . Planned Procedure Time: __12:00pm .? Time changes happen often and if your time is changed the preop area will call you the afternoon before. - You and your visitor will be asked to self-screen and do not enter if you have any COVID symptoms. Please call surgeon if you need to reschedule. - A mask is optional within the hospital at this time. Patients may have clear liquids (water, carbonated beverages, clear teas, apple juice) until 3 hours prior to surgery with a maximum of 20 ounces. - No food from midnight until time of surgery and no smoking Take only the following medications with a SIP of water on the morning of surgery: Metoprolol, Isosorbide, and Tylenol if needed DO NOT STOP ANY OF YOUR OTHER PRESCRIPTION MEDICATIONS PRIOR TO SURGERY EXCEPT THE FOLLOWING Medications to discontinue per physician ___Hold all vitamins and supplements for 3 days per Anesthesia_ Date to take last dose____02/16/24 Please no make-up, nail palestinian, hairspray, perfume, deodorant, or body powder the day of surgery.? No jewelry (including any body piercings) or valuables the day of surgery, leave them at home.? Please take a shower or bath the night before, or the morning of, surgery with an antibacterial soap.? Wear comfortable, loose fitting clothing. - Jewelry must be removed prior to entering the operating room.? Rings and piercings that are not removed may be cut off. - The hospital will not accept responsibility for valuables.? - Please leave all valuables, including medications, at home the day of surgery. If you are going home after surgery, a licensed milk delivery driver must drive you home.? - NO public transportation without another adult if you receive anesthesia. - We recommend that an adult stay with you for 24 hours following discharge. - We also recommend that you do not drive, make important decision, drink alcoholic beverages, or take any drugs that were not prescribed by your health care provider for at least 24 hours after your discharge time. Follow any additional instructions given to you from your surgeon. Telephone instructions given to __patient and asked if any additional questions and then verbalized understanding. Patient advised to call surgeon office or pre surgery nurse liaison [phone] if any additional questions.
[2024-02-20] VITALS (9 sets, daily range): BP systolic 103–176; BP diastolic 51–77; PULSE 56–74; RESP 10–18; TEMP 36.4–36.7; O2SAT 96–100
[2024-02-20] MEDS: KETOROLAC 15 MG/ML VIAL (*BKC) IV PUSH (10:30)
[2024-02-20] MEDS: ACETAMINOPHEN 500 MG TABLET 1000 MG PO (10:30)
[2024-02-20] MEDS: LACTATED RINGERS 1,000 ML 30 ML IV CONT ×2 (10:30→13:11)
--- NOTE | 2024-02-20 11:56 | PM.IMHP ---
H&P: HPI History of Present Illness Date/Time: 02/20/24 11:56 Chief Complaint: Recurrent appendicitis Narrative: The patient is a 78-year-old male well known to our service from previous episodes of appendicitis. The patient has been treated conservatively in the past with antibiotics given his extensive cardiac history. At this time, it was recommended that the patient get interval appendectomy once he was cleared by Cardiology. The patient has been cleared by Cardiology and is now here for interval appendectomy. Review of Systems Review of Systems: All systems reviewed & are unremarkable except as noted in HPI and below PMFSH Past Medical History Medical History Carotid stenosis Followed by Dr. Melendez. Coronary artery disease Hyperlipidemia Hypertension Screening for abdominal aortic aneurysm negative US 2022 Surgical History Surgical History History of cataract extraction History of coronary angioplasty with insertion of stent (11/07/01) History of four vessel coronary artery bypass graft (2008) Family History Family History Mother Cerebrovascular accident Father Family history of kidney disease Social History Social History Social History: Surrogate medical decision maker: Natalya Moreno, spouse. Code status: Full code. Smoking packs per day: 1 Smoking cigarettes per day: 20.0 Years smoked: 3 Smoking pack-years: 3.00 Smoking status: Former smoker Tobacco type: cigarettes Second hand tobacco smoke exposure: No Smoking end date: 04/09/79 Alcohol intake: never Drinks per week: 1 Substance use: never Substance use type: does not use Do You Feel Safe in your Home?: Yes Lack of Transportation: YES Lack of Food: Never True Current Housing: I Have Housing Concerned About Future Housing: No Difficulty Paying Gas/Electric Bills: No Difficulty Paying for Meds: No Currently Unemployed: YES Education: Trade/Vocational Certificate Difficulty w/ Childcare or Family Care: No Living arrangements: with family Additional living arrangements comments: Occupation/Education: retired Spiritual care concerns: No Agree to blood products: Yes Meds Home Medications and Allergies Home Medications Medication Instructions Recorded Confirmed Type aspirin 81 mg tablet,delayed 81 mg PO HS 02/06/19 02/20/24 History release (Ghada Low Dose Aspirin) multivitamin 1 cap PO DAILY 02/06/19 02/20/24 History omega-3 fatty acids 1,000 mg 1,000 mg PO HS 05/05/19 02/20/24 History capsule (Fish Oil Concentrate) metoprolol tartrate 50 mg tablet 50 mg PO BID #180 tabs 11/12/23 02/20/24 Rx tamsulosin 0.4 mg capsule (Flomax) 0.4 mg PO DAILY #90 caps 11/26/23 02/08/24 Rx atorvastatin 40 mg tablet 80 mg PO HS 30 days #60 tabs 12/11/23 02/08/24 Rx isosorbide mononitrate 30 mg 30 mg PO QAM 30 days #30 tabs 12/11/23 02/20/24 Rx tablet,extended release 24 hr nitroglycerin 0.4 mg sublingual 0.4 mg sublingual Q5M PRN chest 12/14/23 02/08/24 Rx tablet pain #25 tabs lisinopril 10 mg tablet 10 mg PO DAILY #90 tabs 02/19/24 Rx Allergies Allergy/AdvReac Type Severity Reaction Status Date / Time No Known Allergies Allergy Verified 02/20/24 11:06 Vital Signs Vital Signs - 24 hr 02/20/24 10:30 Temperature 36.7 C Pulse Rate 56 L Respiratory Rate 18 Blood Pressure 162/75 H Pulse Oximetry 99 Oxygen Delivery Room Air Exam Const: General: cooperative, comfortable and no acute distress Resp: Auscultation: clear to auscultation bilaterally Cardio: Rate: regular rate Rhythm: regular rhythm GI: Inspection: normal to inspection and non-distended GI Palp: No abdominal tenderness and Yes Soft to palpation Assessment and Plan Assessment and plan (1) Recurrent appendicitis: Code(s): K36 - Other appendicitis Status: Acute Assessment and Plan: Will set up for interval appendectomy, patient has been cleared and optimized by Cardiology
--- NOTE | 2024-02-20 11:58 | WPDHPUPDATE1 ---
History and Physical Update Update Date/Time: 02/20/24 11:58 History and Physical has been reviewed, including an updated exam of the patient. There are NO changes in the patient's condition. Risks, benefits, and alternatives have been discussed and questions answered. Patient agrees to proceed with procedure.
--- NOTE | 2024-02-20 12:12 | P.PNAN_ITS ---
Anes - Initial Pre Proc Eval Procedure: Operation Date: 02/20/24 12:00 Proposed Procedures p Laparoscopic Appendectomy - Liana Tsang MD Date/Time: 02/20/24 12:12 Surgeon: Liana Tsang MD Pre Op Diagnosis: recurrent appendicitis Patient Data Age: 78 Gender: M Height: 1.78 m Weight: 98.7 kg Last Vital Signs Temp 98.1 F 02/20/24 10:30 Pulse 56 L 02/20/24 10:30 Resp 18 02/20/24 10:30 BP 162/75 H 02/20/24 10:30 Pulse Ox 99 02/20/24 10:30 O2 Del Method Room Air 02/20/24 10:30 Allergies Allergy/AdvReac Type Severity Reaction Status Date / Time No Known Allergies Allergy Verified 02/20/24 11:06 Home Medications Medication Instructions Recorded Confirmed Type aspirin 81 mg tablet,delayed 81 mg PO HS 02/06/19 02/20/24 History release (Ghada Low Dose Aspirin) multivitamin 1 cap PO DAILY 02/06/19 02/20/24 History omega-3 fatty acids 1,000 mg 1,000 mg PO HS 05/05/19 02/20/24 History capsule (Fish Oil Concentrate) metoprolol tartrate 50 mg tablet 50 mg PO BID #180 tabs 11/12/23 02/20/24 Rx tamsulosin 0.4 mg capsule (Flomax) 0.4 mg PO DAILY #90 caps 11/26/23 02/08/24 Rx atorvastatin 40 mg tablet 80 mg PO HS 30 days #60 tabs 12/11/23 02/08/24 Rx isosorbide mononitrate 30 mg 30 mg PO QAM 30 days #30 tabs 12/11/23 02/20/24 Rx tablet,extended release 24 hr nitroglycerin 0.4 mg sublingual 0.4 mg sublingual Q5M PRN chest 12/14/23 02/08/24 Rx tablet pain #25 tabs lisinopril 10 mg tablet 10 mg PO DAILY #90 tabs 02/19/24 Rx Patient hx anesthesia problems: none Family hx anesthesia problems: none Results Review: All pre-operative results and documents have been reviewed as part of the pre- operative evaluation. [facility] Past Medical History Medical History Carotid stenosis Followed by Dr. Melendez. Coronary artery disease Hyperlipidemia Hypertension Screening for abdominal aortic aneurysm negative US 2022 Surgical History Surgical History History of cataract extraction History of coronary angioplasty with insertion of stent (11/07/01) History of four vessel coronary artery bypass graft (2008) Family History Family History Mother Cerebrovascular accident Father Family history of kidney disease Social History Social History Social History: Surrogate medical decision maker: Natalya Moreno, spouse. Code status: Full code. Smoking packs per day: 1 Smoking cigarettes per day: 20.0 Years smoked: 3 Smoking pack-years: 3.00 Smoking status: Former smoker Tobacco type: cigarettes Second hand tobacco smoke exposure: No Smoking end date: 04/09/79 Alcohol intake: never Drinks per week: 1 Substance use: never Substance use type: does not use Do You Feel Safe in your Home?: Yes Lack of Transportation: YES Lack of Food: Never True Current Housing: I Have Housing Concerned About Future Housing: No Difficulty Paying Gas/Electric Bills: No Difficulty Paying for Meds: No Currently Unemployed: YES Education: Trade/Vocational Certificate Difficulty w/ Childcare or Family Care: No Living arrangements: with family Additional living arrangements comments: Occupation/Education: retired Spiritual care concerns: No Agree to blood products: Yes Anes - Eval Final PreProcedure Day of Procedure 02/20/24 12:12 Patient weight: obese Heart: regular rate and rhythm Lungs: clear to auscultation Airway: Mallampati scale class II Neurological: alert and oriented Last oral intake: >/= 8 hours ASA classification: IV Emergent: no Anesthetic plan: proceed Anesthesia type and monitoring: general ETT and standard monitoring Results Review: All pre-operative results and documents have been reviewed as part of the pre-operative evaluation. Extensive history reviewed. Pt w CABG 2008, more recent stress test concerning for ischemia that is stable, nml LVEF. Pt deemed to have medical mgt and cleared for this surgery. More recent carotid US reviewed w less than 70% pedro. Pt w excellent functional status with working in his shed, cutting wood, no cp or sob. Will proceed and all R/B/A discussed w pt, , daughter, and Dr. Tsang. Informed Consent: The patient's anesthetic plan and its attendant risks and benefits were discussed with the patient/family/POA. Questions were solicited and answers provided to the satisfaction of the patient/family/POA.
[2024-02-20] MEDS: ceFAZolin 2 GM/D5W 50 ML 2 GM/50 ML BAG IVPB (12:18)
[2024-02-20] MEDS: BUPIVACAINE/EPINEPHRINE 0.5% 50 ML VIAL 30 ML INFILTRATE (12:42)
--- NOTE | 2024-02-20 13:14 | P.OP_ITS ---
Procedure Note - Detailed Date of Procedure 02/20/24 Pre-op Diagnosis recurrent appendicitis Post-op Diagnosis Same Procedure Performed laparoscopic appendectomy Surgeon Liana Tsang MD Anesthesia General and Local Indications 78-year-old male presenting for interval appendectomy for recurrent appendicitis. Patient initially presented with appendicitis with abscess and treated conservatively. Patient had another subsequent episode requiring antibiotics. Findings Appendix noted to be inflamed in the mid to distal portion, no evidence of perforation Description of Procedure The patient was taken to the operating room and placed in the supine position. After adequate induction of general anesthesia, the patient was prepped and draped in the normal sterile fashion. A time-out was then done to verify the patient's identity, as well as the procedure being performed. I began by making a 5 mm incision in the infraumbilical region, through this a Veress needle was placed in the peritoneal cavity. CO2 gas was then insufflated and after adequate pneumoperitoneum was achieved the Veress needle was removed. Then placed a 5 mm Optiview trocar under direct visualization into the peritoneal cavity. I then insufflated through this trocar site and the endoscope was placed into the trocar. Under direct visualization, I placed 2 further ports, a 5 mm suprapubic port as well as an additional 12 mm port in the left lower abdomen. At this point identified the cecum, I retracted the cecum both medially and superiorly allowing me to expose the appendix. The appendix was noted to be very dilated and inflamed especially towards the tip. The appendix was noted to be very adherent to the right lateral sidewall as well as the ileum. I was able to bluntly dissect the appendix from these adhesions. I then was able to locate the base of the appendix with the cecum. I created a window with the [place] dissector between the appendix itself and the mesoappendix. I then transected the mesoappendix with a white vascular staple load. The Endo- PAL was then reloaded with a blue staple load and I transected the base of the appendix. Once the specimen was completely detached, an endo-pouch was placed into the 12 mm port site and the specimen was removed through the endo-pouch. The appendiceal specimen will be sent to pathology for further review. I then copiously irrigated the right lower quadrant. Hemostasis was noted at both staple lines no other pathology was seen in this area. I then moved the camera to the suprapubic port to check our its port of entry. No iatrogenic injury or other pathology was noted in the upper abdomen. I then closed the 12 mm port site with a Eleaazr code and 0 Vicryl suture under direct visualization. At this point, the abdomen was desufflated and all ports were removed. All port sites were closed with 4 Monocryl subcuticular suture. Dermabond was placed on all wounds. The patient tolerated the procedure well and was extubated in the operating room postop. He will be sent to the recovery room in stable condition. Estimated Blood Loss 5 Drains No Packing No Pathology Yes Complications No immediate complications Condition Stable Disposition PACU [facility] Billing Surgery - Charge Forward: Surgery Billing
== END 2024-02-20 14:47 | disposition home or self-care (01) ==
PROVIDERS: PCP Family Medicine; Visit Provider Surgery
PROC: 0DTJ4ZZ Resection of Appendix, Percutaneous Endoscopic Approach (ICD-10-PCS; CPT 44970; principal; 2024-02-20 12:00)
DX: K35.33 Acute appendicitis with perforation, localized peritonitis, and gangrene, with abscess (principal); K38.2 Diverticulum of appendix; I10 Essential (primary) hypertension; E78.5 Hyperlipidemia, unspecified; I25.10 Atherosclerotic heart disease of native coronary artery without angina pectoris; Z79.82 Long term (current) use of aspirin; Z95.5 Presence of coronary angioplasty implant and graft; Z95.1 Presence of aortocoronary bypass graft; Z87.891 Personal history of nicotine dependence; E66.9 Obesity, unspecified; Z68.31 Body mass index [BMI] 31.0-31.9, adult
CPT/HCPCS: 44970; 88304; A9270; J0690; J1100; J1885; J2003; J2405; J2704; J3010; J7120

== ENCOUNTER 2024-06-06 10:58 | Outpatient (CLI) | payer MEDICARE, SELFPAY | END 2024-06-06 10:59 | disposition home or self-care (01) | LOC: GOSHIMG 10:59 | PROVIDERS: PCP Nurse Practitioner Family; Visit Provider Nurse Practitioner Family | DX: M25.562 Pain in left knee (principal) | CPT/HCPCS: 73562 ==

== ENCOUNTER 2024-09-16 13:15 | Outpatient (RCR) | payer MEDICARE, SELFPAY ==
--- NOTE | 2024-08-29 10:07 | OPREHPOC ---
Outpatient Therapy Plan of Care This is a Multidisciplinary Plan of Care that may contain components documented by all disciplines (PT, OT, and ST.) PT Problem 1 PT Problem #1 Knowledge Deficit PT Goal 1 Goal / Goal Update [place] with HEP Target Visit 4 PT Problem 2 PT Problem #2 Impaired Range of Motion PT Goal 1 Goal / Goal Update 1. Achieve terminal knee extension motion 2. Improve knee flexion ROM to 125 degrees Target Visit 6 PT Problem 3 PT Problem #3 Impaired Gait PT Goal 1 Goal / Goal Update Patient will ambulate with even stride length bilaterally to eliminate antalgic pattern Target Visit 6
--- NOTE | 2024-08-29 10:07 | PTOPEVAL1 ---
Assessment and note entered by Sourav Bunch, PT Evaluation Information Assessment Status Evaluation ICD-10 Condition Codes (PT) Pain in left knee M25.562 Onset April 2024 Subjective Information Reports that he had a fall in late winter and fell on his knee starting his pain. Reports that he has had pain off and on. It is better during the day but has pain at night and cannot sleep on his right side. He has to sleep with a pillow between his knees and he wakes up with a lot of stiffness. Denies any feelings of weakness or pain down the leg into the ankle. Feels that historically he shifts a lot of weight onto his left side. Reported Pain Level Pain Score 0: Self Report Assessment PT Clinical Summary Patient presents with decreased terminal stance of knee affecting resting position and terminal stance of gait. Shows some hip ROM restriction as well and will benefit form skilled therapy to address these deficits to maximize functional knee motion. Plan of Care Interventions Electrical Stimulation,Hot Pack/Cold Pack,Manual Therapy,Neuro Re-education,Therapeutic Activities, Therapeutic Exercise PT Services Indicated Yes Treatment Frequency and 2x/week for 6 visits Duration These treatments will address the objective and functional deficits as defined above. The patient will be advanced safely and appropriately in order for the patient to progress towards his/her prior level of function. Additional exercises will be introduced and as well as a comprehensive home exercise program upon discharge, if needed, ?to ensure carryover of functional gains achieved in the clinic. This treatment plan has been reviewed and agreement upon by the patient.
--- NOTE | 2024-09-16 14:08 | OPREHPOC ---
Outpatient Therapy Plan of Care This is a Multidisciplinary Plan of Care that may contain components documented by all disciplines (PT, OT, and ST.) PT Problem 1 PT Problem #1 Knowledge Deficit PT Goal 1 Goal / Goal Update [place] with HEP Target Visit 4 Progress Met PT Problem 2 PT Problem #2 Impaired Range of Motion PT Goal 1 Goal / Goal Update 1. Achieve terminal knee extension motion 2. Improve knee flexion ROM to 125 degrees Target Visit 6 Progress Met PT Problem 3 PT Problem #3 Impaired Gait PT Goal 1 Goal / Goal Update Patient will ambulate with even stride length bilaterally to eliminate antalgic pattern Target Visit 6 Progress Met
--- NOTE | 2024-09-16 14:08 | PTOPDC ---
Assessment and note entered by Sourav Bunch, PT Evaluation Information Assessment Status Discharge ICD-10 Condition Codes (PT) Pain in left knee M25.562 Onset April 2024 Subjective Information Patient reports that he is no longer having pain. Reports that the night pain is gone and he feels that he is walking much better. Feels he has met all of his goals. Reported Pain Level Pain Score 0: Self Report Assessment PT Clinical Summary Patient has met all personal and clinical goals for therapy and is suitable for discharge to [facility] at this time. Plan of Care PT Services Indicated Yes
== END 2024-09-16 14:30 | disposition home or self-care (01) ==
LOC: ANHGOSHPT 13:15
PROVIDERS: PCP Nurse Practitioner Family; Visit Provider Nurse Practitioner Family
DX: M25.562 Pain in left knee (principal)
CPT/HCPCS: 97110; 97140; 97161; 97530